=== PATIENT | female | born 1945 | race Caucasian/White ===

== ENCOUNTER 2019-01-15 18:37 | Inpatient (IN) | payer MEDICARE, OTHER, SELFPAY ==
[2019-01-15 19:00] VITALS: BP 132/60; PULSE 68; RESP 18; TEMP 36.3; O2SAT 97; BMI 22.9
[2019-01-15 19:56] VITALS: BMI 22.9
--- NOTE | 2019-01-15 20:16 | PCM.CONS.GEN ---
Reason for Consult Date of Consultation: 01/15/19 Reason for Consultation: Consult requested by Dr. Marroquin for medical mgmt. History of Present Illness: The patient is a 73 year old F who on November 29, had a meningioma resection. Patient was in hospital and eventually discharged. While at home, patient regressed and started having falls. Patient was then diagnosed with normal pressure hydrocephalus and went to [facility] and had a shunt placed. Apparently there was some issue with the shunt and had to be revised or replaced. Patient was discharged from [facility] to [facility] today. All the documentation with exception of some limited discharge medication list and patient information list was not available at the time of my evaluation. Currently, the patient states that she feels well other than headache that she developed from the bumpy ride over from [facility]. [] Past Medical History Medical History: Medical History (Last Updated 01/15/19 @ 20:19 by Librado De Santiago DO) Hyperlipidemia E78.5 Normal pressure hydrocephalus G91.2 HTN (hypertension) I10 Allergies No Known Allergies Allergy (Verified 02/07/13 18:26) Home Medications: Ambulatory Orders Medication Instructions Recorded Fish Oil/Dha/Epa [Fish Oil 1,200 1 tab PO DAILY 02/07/13 mg Fish Oil] Hydrochlorothiazide [Hctz] 25 mg PO DAILY 02/07/13 Rosuvastatin Calcium [Crestor] 10 mg PO QHS 02/07/13 Calcium Carbonate [Calcium] 500 mg PO BID 01/15/19 Cranberry Extract [Cranberry] 200 mg PO DAILY 01/15/19 Dexamethasone [Decadron] 2 mg PO BID 01/15/19 Dexamethasone [Decadron] 2 mg PO TID 01/15/19 Dexamethasone [Decadron] 4 mg PO BIDCM 01/15/19 Dexamethasone [Decadron] 4 mg PO Q8H 01/15/19 Famotidine [Pepcid] 20 mg PO BID 01/15/19 Heparin Injection (Vial) [Heparin 5,000 unit SUBCUT Q12H 01/15/19 Na] Losartan Potassium [Cozaar] 100 mg PO DAILY 01/15/19 Metformin HCl [Metformin HCl ER] 500 mg PO DAILY 01/15/19 Multivitamin [Daily Multiple 1 ea PO DAILY 01/15/19 Vitamin] Ondansetron HCl [Zofran] 4 mg PO Q8H PRN PRN 01/15/19 Oxycodon-Acetaminophen 2.5-325 1 - 2 tab PO Q8H PRN PRN 01/15/19 Topiramate [Topamax] 25 mg PO BID 01/15/19 Surgical History: Surgical History (Last Updated 01/15/19 @ 20:19 by Librado De Santiago DO) S/P [employer] shunt Z98.2 S/P hip replacement Z96.649 S/P resection of meningioma Z98.890, Z86.018 Smoking Status: Former smoker Tobacco Use: Non-smoker Alcohol: Rare - *Family History Maternal History Items: - - no meningioma Review of Systems Constitutional: Denies: Anorexia, Chills, Fever Eyes: Denies: Blurred vision, Double vision HEENT: Denies: Head Aches, Sinus Congestion, Sinus Drainage Cardiovascular: Denies: Chest Pain, Palpitations Respiratory: Denies: Cough, Shortness of breath at rest, Sputum production Gastrointestinal: Reports: Nausea, Vomiting. Denies: Abdominal Pain Genitourinary: Denies: Dysuria Musculoskeletal: Denies: Joint Pain, Joint Tenderness Skin: Denies: Rash, Wounds Neurological: Reports: Balance problems Psychiatric: Denies: Anxiety, Depression Hematologic/ Lymphatic: Denies: Easy Bruising, Easy Bleeding, Hx of blood clot Comment: All review systems are otherwise negative except for as mentioned above and in HPI. - Physical Exam Vitals/I&O's: Vital Signs Temp Pulse Resp BP Pulse Ox 36.3 C L 68 18 132/60 H 97 01/15/19 19:00 01/15/19 19:00 01/15/19 19:00 01/15/19 19:00 01/15/19 19:00 Oxygen Delivery Method Room Air Weight: 62.5 kg Body Mass Index (BMI) 22.9 Intake and Output for Last 24 Hours 01/13/19 01/14/19 01/15/19 23:59 23:59 23:59 Intake Total 220 / 220 Balance 220 / 220 General: Alert, Cooperative, No apparent distress HEENT: Atraumatic, Normocephalic, - - Incision on right scalp is stapled and clean and intact without erythema or purulence. Oral: Moist Mucosa, No Gingival or Mucosal Lesions/ Ulcerations Neck: No Nodes, Trachea Midline Lungs: Clear to auscultation, Normal air movement, No rhonchi, No wheeze, No rales Cardiovascular: Regular rate, Regular Rhythm, Normal S1, Normal S2, No murmurs Abdomen: Bowel Sounds Present, Soft, Non Tender, Non-Distended, No Hepato-splenomegaly Extremities: No edema, No Calf Tenderness Skin: No rashes, No breakdown Musculoskeletal: No Tenderness to Palpation of Joints or Extremities, No Muscle Wasting Psych/Mental Status: Normal Affect, Appropriate Current Medications Acetaminophen (Tylenol) 500 mg PO Q6H PRN PRN PRN Reason: HEADACHE Atorvastatin Calcium (Lipitor) 20 mg PO QHS [facility] Bisacodyl (Dulcolax) 10 mg RECTAL .PRN X 1 PRN PRN Reason: Constipation Calcium Carbonate (Os-Gonzalez 500) 500 mg PO BID [facility] Dexamethasone (Decadron) 2 mg PO BIDCM [facility] Dexamethasone (Decadron) 2 mg PO TIDCM [facility] Stop: 02/01/19 08:01 Dexamethasone (Decadron) 4 mg PO Q8H [facility] Stop: 01/21/19 06:01 Dexamethasone (Decadron) 4 mg PO BIDCM [facility] Stop: 01/26/19 17:01 Famotidine (Pepcid) 20 mg PO BID [facility] Heparin Sodium (Porcine) (Heparin Na) 5,000 unit SC Q12 [facility] Hydrochlorothiazide (Hctz) 25 mg PO DAILY [facility] Losartan Potassium (Cozaar) 100 mg PO DAILY [facility] Magnesium Hydroxide (Milk Of Magnesia) 30 ml PO .PRN X 1 PRN PRN Reason: Constipation Metformin HCl (Glucophage Xr) 500 mg PO DAILY@1700 [facility] Multivitamins (Multivitamin) 1 tablet PO DAILY@0800 [facility] Ondansetron HCl (Zofran Odt) 4 mg PO Q8H PRN PRN PRN Reason: nasuea Oxycodone HCl (Oxyir) 0.5 - 1 mg PO Q8H PRN PRN PRN Reason: pain Senna/Docusate Sodium (Senokot-S, Sarai-Colace) 2 tablet PO BID [facility] Topiramate (Topamax) 25 mg PO BID [facility] Assessment/Plan 1. Normal pressure hydrocephalus Status post [employer] shunt On Decadron taper Follow-up with neurosurgery as outpatient 2. Hypertension Stable Continue with losartan and HCTZ 3. Hyperlipidemia Continue with statin Thank you for the consult. The hospitalist service will follow along during the course of this patient's rehab stay. Code Visit Inpatient E&M: 84300 Init Hosp L2
[2019-01-15] MEDS: Acetaminophen 500 MG Tablet PO (20:24)
[2019-01-15 20:38] VITALS: BP 130/66; PULSE 72; RESP 18; TEMP 36.6; O2SAT 96
[2019-01-15] MEDS: Ondansetron ODT 4 MG Tablet PO (21:18)
[2019-01-15] MEDS: Topiramate 25 MG Tablet PO (21:21)
[2019-01-15] MEDS: Senna/Docusate Sodium 1 Tablet 2 TABLET PO (21:21)
[2019-01-15] MEDS: Atorvastatin Calcium 20 MG Tablet PO (21:22)
[2019-01-15] MEDS: Calcium (Elemental) 500 MG Tablet PO (21:22)
[2019-01-15] MEDS: Famotidine 20 MG Tablet PO (21:22)
[2019-01-15] MEDS: Heparin Injection (Vial) 5,000 UNIT/ML VIAL 5000 UNIT SC (21:23)
[2019-01-15 22:00] VITALS: O2SAT 96
[2019-01-15 22:30] LABS: Bedside Glucose 181 mg/dL (70-110)
[2019-01-16 05:50] LABS: Absolute Lymphocyte Count 1.21 X10^3/uL (0.83-4.51); Absolute Neutrophil Count 7.1 X10^3/uL (2.0-7.7); Basophil# 0.01 X10^3/uL; Basophil% 0.1 % (0-1); Eosinophil# 0.01 X10^3/uL; Eosinophils% 0.1 % (0-5); Hematocrit 37.4 % (37-47); Hemoglobin 12.6 g/dL (12.0-15.0); Lymphocyte # 1.21 X10^3/ul (4.0); Lymphocyte % 13.3 % (19-41); Mean Corp Hgb Conc 33.7 g/dL (32-36); Mean Corpuscular Volume 86.2 fL (81-99); Mean Platelet Vol. 8.7 fl (6.2-12.0); Monocyte% 7.7 % (0-10); NRBC Flagged by Analyzer 0 % (0-5); Neutrophil # 7.09 X10^3/uL (2.7-7.7); Platelet Count 258 K/mm3 (150-450); RBC Distribution Width CV 13.5 % (11.6-14.6); RBC Distribution Width SD 42.8 fl (35.1-43.9); Red Blood Count 4.34 M/mm3 (4.2-5.4); White Blood Count 9.1 K/mm3 (4.4-11.0)
[2019-01-16 06:07] LABS: Anion Gap 6 (5-15); BUN 18 mg/dL (7-18); BUN/Creat Ratio 35.5 RATIO (10-20); Calcium,Total 9.7 mg/dL (8.5-10.1); Chloride 104 mmol/L (98-107); Creatinine, Serum 0.51 mg/dL (0.55-1.02); EST Glomerular Filtration Rate 126 mL/min (>60); Est Glom Filt Rate - Afr Amer 153 mL/min (>60); Estimated Creatinine Clearance 45.09 ml/min; Glucose 133 mg/dL (74-106); Potassium 4.3 mmol/L (3.5-5.1); Sodium Level 136 mmol/L (136-145)
[2019-01-16] MEDS: dexAMETHasone 4 MG Tablet PO ×3 (06:08→20:31)
[2019-01-16 06:56] LABS: Bedside Glucose 130 mg/dL (70-110)
[2019-01-16] MEDS: Senna/Docusate Sodium 1 Tablet 2 TABLET PO ×2 (07:56→20:32)
[2019-01-16] MEDS: Topiramate 25 MG Tablet PO ×2 (07:56→20:32)
[2019-01-16] MEDS: Heparin Injection (Vial) 5,000 UNIT/ML VIAL 5000 UNIT SC ×2 (07:57→20:31)
[2019-01-16] MEDS: Losartan Potassium 100 MG Tablet PO (07:57)
[2019-01-16] MEDS: Famotidine 20 MG Tablet PO ×2 (07:57→20:32)
[2019-01-16] MEDS: hydroCHLOROthiazide 25 MG Tablet PO (07:57)
[2019-01-16] MEDS: Multivitamins,Therapeutic Tablet 1 TABLET PO (07:57)
[2019-01-16] MEDS: Calcium (Elemental) 500 MG Tablet PO ×2 (07:57→20:31)
[2019-01-16 08:04] VITALS: BP 134/71; PULSE 54; RESP 16; TEMP 36.5; O2SAT 97
--- NOTE | 2019-01-16 10:11 | HP.PCM_ITS ---
Problem List (1) Debility Status: Acute (2) HTN (hypertension) Status: Chronic (3) HLD (hyperlipidemia) Status: Chronic (4) Diabetes Status: Chronic (5) Hydrocephalus Status: Acute (6) Cerebellar mass Status: Chronic (7) S/P INSTRUCTIONAL SPECIALIST shunt Status: Acute History of Present Illness Date of Admission: 01/15/19 Chief Complaint: Debility s/p hydrocephalus (NPH) and VPS The patient is a 73 year old F with PMH HTN, HLD, DM, history of cerebellar mass status post resection admitted to [facility] on 01/15/2019 for debility secondary to normal pressure hydrocephalus status post INSTRUCTIONAL SPECIALIST shunt placement, for greater ross n 3 hours of therapy daily with a goal of returning home at or near her prior level of independence. History is obtained from the patient as well as from medical records. Per documentation patient had a cerebellar mass that was resected on 11/29/2018, later patient was discharged in stable condition and readmitted on 01/01/[address] [facility] for imbalance and intermittent nausea vomiting, diagnostic test at that time revealed hydrocephalus, a lumbar drain was placed initially at that time per documentation and patient was observed for subsequent improvement in the symptoms, she was then discharged on January 06, 2019, later patient was readmitted to [facility] on 01/07/2019 with nausea vomiting and intermittent headache along with balance issues and gait instability, per documentation patient had been confused since the prior discharge from [facility] and was not remembering to intermittent events, on 01/10/2019 patient underwent INSTRUCTIONAL SPECIALIST shunt placement for NPH by Dr. Megan Delaney at [facility], and per documentation patient had post craniectomy aseptic meningitis. Per patient post her cerebellar mass resection in November 2018 later she developed falls and balance issues, gait instability but denies any memory loss or urinary incontinence. At present patient denies any headache, dizziness, visual disturbances, speech disturbances, focal motor weakness, sensory loss or pain. Per patient she lives alone, prior to her surgery in November 2018 she was driving, denied any falls prior to that, was not using cane or walker to ambulate prior to surgery in November 2018. Per patient she lives in independent house and has 2 steps to get into the house. [] Past Medical History Past Medical History (Chronic Problems): Chronic Problems (Last Updated 01/15/19 @ 20:19 by Librado De Santiago DO) HTN (hypertension) (Chronic) HLD (hyperlipidemia) (Chronic) Diabetes (Chronic) Cerebellar mass (Chronic) Medical History: Medical History (Last Updated 01/15/19 @ 20:19 by Librado De Santiago DO) Hyperlipidemia E78.5 Normal pressure hydrocephalus G91.2 HTN (hypertension) I10 Allergies No Known Allergies Allergy (Verified 02/07/13 18:26) Home Medications: Ambulatory Orders Medication Instructions Recorded Fish Oil/Dha/Epa [Fish Oil 1,200 1 tab PO DAILY 02/07/13 mg Fish Oil] Hydrochlorothiazide [Hctz] 25 mg PO DAILY 02/07/13 Rosuvastatin Calcium [Crestor] 10 mg PO QHS 02/07/13 Calcium Carbonate [Calcium] 500 mg PO BID 01/15/19 Cranberry Extract [Cranberry] 200 mg PO DAILY 01/15/19 Dexamethasone [Decadron] 2 mg PO BID 01/15/19 Dexamethasone [Decadron] 2 mg PO TID 01/15/19 Dexamethasone [Decadron] 4 mg PO BIDCM 01/15/19 Dexamethasone [Decadron] 4 mg PO Q8H 01/15/19 Famotidine [Pepcid] 20 mg PO BID 01/15/19 Heparin Injection (Vial) [Heparin 5,000 unit SUBCUT Q12H 01/15/19 Na] Losartan Potassium [Cozaar] 100 mg PO DAILY 01/15/19 Metformin HCl [Metformin HCl ER] 500 mg PO DAILY 01/15/19 Multivitamin [Daily Multiple 1 ea PO DAILY 01/15/19 Vitamin] Ondansetron HCl [Zofran] 4 mg PO Q8H PRN PRN 01/15/19 Oxycodon-Acetaminophen 2.5-325 1 - 2 tab PO Q8H PRN PRN 01/15/19 Topiramate [Topamax] 25 mg PO BID 01/15/19 Surgical History: Surgical History (Last Updated 01/15/19 @ 20:19 by Librado De Santiago DO) S/P INSTRUCTIONAL SPECIALIST shunt Z98.2 S/P hip replacement Z96.649 S/P resection of meningioma Z98.890, Z86.018 Lives: Alone Smoking Status: Former smoker Tobacco Use: Non-smoker Alcohol: Rare - *Family History Maternal History Items: - - no meningioma Review of Systems Constitutional: Reports: - - Complete ROS negative except as documented in HPI VTE Information - Inpt Only VTE Present on Admission: No VTE Mechan Device Prophylaxis: SCD's, Knee High AIMEE Hose VTE Pharm Prophylaxis ordered?: Yes Patient Problems: Active and Suspected Problems (Last Updated 01/15/19 @ 20:19 by Librado De Santiago DO) Debility (Acute) Hydrocephalus (Acute) S/P INSTRUCTIONAL SPECIALIST shunt (Acute) - Physical Exam Vitals/I&O's: Vital Signs Temp Pulse Resp BP Pulse Ox 97.7 F L 54 L 16 134/71 H 97 01/16/19 08:04 01/16/19 08:04 01/16/19 08:04 01/16/19 08:04 01/16/19 08:04 Oxygen Delivery Method Room Air Weight: 62.5 kg Body Mass Index (BMI) 22.9 Intake and Output for Last 24 Hours 01/14/19 01/15/19 01/16/19 23:59 23:59 23:59 Intake Total 220 / 220 240 / 240 Balance 220 / 220 240 / 240 General: Alert HEENT: Normocephalic Neck: Supple Lungs: Normal air movement Cardiovascular: Normal S1, Normal S2 Abdomen: Bowel Sounds Present Extremities: No cyanosis Neurological: - - Conscious, alert, AOA x3, CN II to XII grossly intact, power 5/5 both upper and lower extremities, plantars B/L flexor, no pronator drift, no sensory loss, no cerebellar signs, gait deferred, reflexes + B/L B/S/T/K/A, No NR, fundus not visualized Psych/Mental Status: Normal Affect Laboratory Results 01/15/19 22:10: POC Glucose 181 H 01/16/19 05:41: WBC 9.1, RBC 4.34, Hgb 12.6, Hct 37.4, MCV 86.2, MCH 29.0, MCHC 33.7, RDW Std Deviation 42.8, RDW Coeff of Amira 13.5, Plt Count 258, MPV 8.7, Immature Gran % (Auto) 0.800, Neut % (Auto) 78.0 H, Lymph % (Auto) 13.3 L, [place] % (Auto) 7.7, Eos % (Auto) 0.1, Baso % (Auto) 0.1, Absolute Neuts (auto) 7.1, Absolute Lymphs (auto) 1.21, Nucleated RBC % 0 01/16/19 05:41: Sodium 136, Potassium 4.3, Chloride 104, Carbon Dioxide 26.0, Anion Gap 6, BUN 18, Creatinine 0.51 L, Estim Creat Clear Calc 45.09, Est GFR (MDRD) Af Amer 153, Est GFR (MDRD) Non-Af 126, BUN/Creatinine Ratio 35.5 H, Glucose 133 H, Calcium 9.7 01/16/19 06:49: POC Glucose 130 H Current Medications Acetaminophen (Tylenol) 500 mg PO Q6H PRN PRN PRN Reason: HEADACHE Last Admin: 01/15/19 20:24 Dose: 500 mg Documented by: Atorvastatin Calcium (Lipitor) 20 mg PO QHS [facility] Last Admin: 01/15/19 21:22 Dose: 20 mg Documented by: Bisacodyl (Dulcolax) 10 mg RECTAL .PRN X 1 PRN PRN Reason: Constipation Calcium Carbonate (Os-Gonzalez 500) 500 mg PO BID [facility] Last Admin: 01/16/19 07:57 Dose: 500 mg Documented by: [facility] Dexamethasone (Decadron) 2 mg PO TIDCM [facility] Stop: 02/01/19 08:01 Dexamethasone (Decadron) 4 mg PO Q8H [facility] Stop: 01/21/19 06:01 Last Admin: 01/16/19 06:08 Dose: 4 mg Documented by: Dexamethasone (Decadron) 4 mg PO BIDCM [facility] Stop: 01/26/19 17:01 Famotidine (Pepcid) 20 mg PO BID [facility] Last Admin: 01/16/19 07:57 Dose: 20 mg Documented by: Heparin Sodium (Porcine) (Heparin Na) 5,000 unit SC Q12 [facility] Last Admin: 01/16/19 07:57 Dose: 5,000 unit Documented by: Hydrochlorothiazide (Hctz) 25 mg PO DAILY [facility] Last Admin: 01/16/19 07:57 Dose: 25 mg Documented by: Losartan Potassium (Cozaar) 100 mg PO DAILY [facility] Last Admin: 01/16/19 07:57 Dose: 100 mg Documented by: Magnesium Hydroxide (Milk Of Magnesia) 30 ml PO .PRN X 1 PRN PRN Reason: Constipation Metformin HCl (Glucophage Xr) 500 mg PO DAILY@1700 [facility] Multivitamins (Multivitamin) 1 tablet PO DAILY@0800 [facility] Last Admin: 01/16/19 07:57 Dose: 1 tablet Documented by: Ondansetron HCl (Zofran Odt) 4 mg PO Q8H PRN PRN PRN Reason: nasuea Last Admin: 01/15/19 21:18 Dose: 4 mg Documented by: Oxycodone HCl (Oxyir) 0.5 - 1 mg PO Q8H PRN PRN PRN Reason: pain Senna/Docusate Sodium (Senokot-S, Sarai-Colace) 2 tablet PO BID [facility] Last Admin: 01/16/19 07:56 Dose: 2 tablet Documented by: Topiramate (Topamax) 25 mg PO BID [facility] Last Admin: 01/16/19 07:56 Dose: 25 mg Documented by: Assessment/Plan All Active Problems (Last Updated 01/15/19 @ 20:19 by Librado De Santiago DO) Debility (Acute) Hydrocephalus (Acute) S/P INSTRUCTIONAL SPECIALIST shunt (Acute) The patient is a 73 year old F with PMH HTN, HLD, DM, history of cerebellar mass status post resection admitted to [facility] on 01/15/2019 for debility secondary to normal pressure hydrocephalus status post INSTRUCTIONAL SPECIALIST shunt placement, for greater than 3 hours of therapy daily with a goal of returning home at or near her prior level of independence. History is obtained from the patient as well as from medical records. Per documentation patient had a cerebellar mass that was resected on 11/29/2018, later patient was discharged in stable condition and readmitted on 01/01/[address] [facility] for imbalance and intermitten t nausea vomiting, diagnostic test at that time revealed hydrocephalus, a lumbar drain was placed initially at that time per documentation and patient was observed for subsequent improvement in the symptoms, she was then discharged on January 06, 2019, later patient was readmitted to [facility] on 01/07/2019 with nausea vomiting and intermittent headache along with balance issues and gait instability, per documentation patient had been confused since the prior discharge from [facility] and was not remembering to intermittent events, on 01/10/2019 patient underwent INSTRUCTIONAL SPECIALIST shunt placement for NPH by Dr. Megan Delaney at [facility], and per documentation patient had post craniectomy aseptic meningitis. Per patient post her cerebellar mass resection in November 2018 later she developed falls and balance issues, gait instability but denies any memory loss or urinary incontinence. At present patient denies any headache, dizziness, visual disturbances, speech disturbances, focal motor weakness, sensory loss or pain. Per patient she lives alone, prior to her surgery in November 2018 she was driving, denied any falls prior to that, was not using cane or walker to ambulate prior to surgery in November 2018. Per patient she lives in independent house and has 2 steps to get into the house. 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 Megan Delaney?further recommendation and management per neurosurgery Dr. Megan Delaney. On dexamethasone tapering dose. On famotidine and calcium. Topamax 25 mg p.o. twice daily -HTN?on losartan and HCTZ. Goal blood pressure less than 130/80 mmHg. Avoid hypotension -HLD?on atorvastatin -DM on metformin ER -GI/DVT prophylaxis?on famotidine/heparin 5000 units subcu twice daily, SCDs, AIMEE christiansen -Fall precautions -Further medical management per hospitalist recommendation -Follow up with PCP and neurosurgery Dr. Megan Delaney on discharge as outpatient Code Visit Inpatient E&M: 71466 Init Hosp L3
--- NOTE | 2019-01-16 10:32 | PCM.RU.PYE ---
Admission Information Status Changes from Prescreening?: No changes Identified Actual Problem List:: Falls, Mobility Impaired, Self Care Deficit Potential Problem List:: DVT, Bleeding, Infection, UTI, Aspiration, Falls, Skin Integrity, Depression Risk of Complications DVT: LMWH, AIMEE Hose, Sequential Compression Device Bleeding: Monitor Lab Values, Nursing to Teach Precautions for anti-coagulation therapy., Wound, if applicable, to be assessed every shift., Stroke patients assessed for lethargy or change in status. Infection: Clinical Staff to Monitor for S/S of infection:, S/S of infection include fever, redness, warmth, etc. Urinary Tract Infection: Monitor for frequency, burning, discomfort, or incontinence., Nursing will obtain urine sample for urinalysis and C&S when ordered. Aspiration: Clinical staff will monitor for coughing, drooling, congestion., Speech will evaluate swallowing and dsyphasia., Nursing will monitor patient swallowing during meals. Falls: Patient will be evaluated for Fall Precautions, Patient will be placed on Fall Precautions as indicated per protocol. Skin Breakdown: Nursing will assess skin daily using assessment tool., Nursing will place on Skin Breakdown Precautions as indicated. Pain: Clinical staff will assess patient's pain level per protocol., Medications will be given, if needed, and the pain level reassessed., Other methods: Massage, distraction, decrease stimulus, etc. used PRN. Plan of Care Patient requires physician specializing in physical medicine and rehab oversight to provide close medical supervision of rehab issues including: Pain Management, Sleep Problems, Bowel and Bladder, Medical and co-morbidity Management, DVT prophylaxis, Rehabilitation Leadership, Coordination of treatment team Patient needs Physical Therapy: For a minimum of 1 hour, At least 5 out of 7 days Patient needs Physical Therapy to improve:: Mobility, Mobility, Mobility, Strengthening, Transfers, Stretching, ROM, Endurance, Stairs, Gait, Balance Patient needs Occupational Therapy: For a minimum of 1 hour, At least 5 out of 7 days Patient needs Occupational Therapy to improve ADL's incl.: Eating, Grooming, Bathing, Dressing, Toileting, Toilet transfers, Community Reintegration, Higher functioning activities, Household tasks, Adaptive Equipment, Splinting, Other activities as determined Patient requires speech therapy: For a minimum of 1 hour, At least 5 out of 7 days Patient requires speech therapy for: Swallowing, Cognition, Language Skills, Compensatory Strategies Patient requires / Rehabilitation Nursing for: Pain Issues, Identifying and preventing risk factors, Monitoring and reporting current medical conditions, Assisting with ambulation, transfer, and all ADL's, Teaching patients about disease process and medications, Family teaching, Providing safe environment, Bowel and Bladder Issues, Skin integrity, Medication Management Patient needs Live Ammunition Inspector/ Case Management for: Discharge Planning, Arranging Home Equipment or Services, Family Interventions Patient needs Dietary and Nutrition Services for: Adequate Nutrition, Nutritional Supplements, Nutritional Education Goals Patient will remain: free from falls, or injury at time of discharge. Patient will perform bed mobility at: MOD I level of assist. Patient will complete transfers from bed to chair at: MOD I level of assist. Patient will ambulate: 100 feet, with MOD I assist, with LRD Patient will complete upper body dressing at: MOD I level of assist. Patient will complete lower body dressing at: MOD I level of assist. Patient will complete toileting at: MOD I level of assist. Patient will perform bathing at: MOD I level of assist. Patient will complete grooming at: MOD I level of assist. Patient will complete home management skills at: MOD I level of assist. Patient will achieve: 12 stairs, at MOD I assist Patient will have pain level of: of 3 or less Patient's skin will: remain intact, free from infection. Patient will receive: adequate nutrition. Discharge Planning Pt Prognosis for Sig. Practical Improv. w/in Reasonable Time: Good Estimated Length of stay (days): 16 Anticipated D/C Destination: Home Was Preadmission Assessment Accurate?: Yes
[2019-01-16] MEDS: Ondansetron ODT 4 MG Tablet PO ×2 (10:51→20:29)
[2019-01-16 11:26] LABS: Bedside Glucose 175 mg/dL (70-110)
[2019-01-16 16:51] VITALS: O2SAT 100
[2019-01-16] MEDS: metFORMIN (XR) 500 MG Tablet PO (16:57)
[2019-01-16 17:01] LABS: Bedside Glucose 117 mg/dL (70-110)
[2019-01-16 19:05] VITALS: BP 146/70; PULSE 61; RESP 16; TEMP 36.8; O2SAT 100
[2019-01-16] MEDS: Atorvastatin Calcium 20 MG Tablet PO (20:31)
[2019-01-16 20:44] VITALS: O2SAT 95
[2019-01-16 21:40] LABS: Bedside Glucose 150 mg/dL (70-110)
[2019-01-17] MEDS: Ondansetron ODT 4 MG Tablet PO ×2 (05:38→14:52)
--- NOTE | 2019-01-17 05:49 | NURSING ---
Pt educational material found in garbage.
--- NOTE | 2019-01-17 06:10 | NURSING ---
Addendum entered by Yudy Berrios 01/17/19 06:15: rn made aware of emesis and pt returning to bed, will continue to monitor Original Note: 0545 pt sitting on the toilet and reports that she is nauseated. pt indicated that she needs to return to bed d/t feeling sick. staff assist pt back into the bed and a cool washcloth was given for face and neck. pt proceeded with dry heaves and then had an emesis of 50cc; yellow in color
[2019-01-17 06:26] LABS: Bedside Glucose 146 mg/dL (70-110)
[2019-01-17] MEDS: dexAMETHasone 4 MG Tablet PO ×3 (06:45→21:50)
[2019-01-17 07:10] VITALS: BP 124/72; PULSE 68; RESP 97; TEMP 36.7; O2SAT 16
--- NOTE | 2019-01-17 07:42 | PN_ITS ---
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 Oral: Moist Mucosa, No Gingival or Mucosal Lesions/ Ulcerations Neck: No Nodes, Trachea Midline Lungs: Clear to auscultation, Normal air movement, No rhonchi, No wheeze, No rales Cardiovascular: Regular rate, Regular Rhythm, Normal S1, Normal S2, No murmurs Abdomen: Bowel Sounds Present, Soft, Non Tender, Non-Distended, No Hepato- splenomegaly Extremities: No edema, No Calf Tenderness Skin: No rashes, No breakdown Musculoskeletal: No Tenderness to Palpation of Joints or Extremities, No Muscle Wasting Psych/Mental Status: Normal Affect, Appropriate Vitals/I&O's: Vital Signs Temp Pulse Resp BP Pulse Ox 98.0 F 68 97 H 124/72 H 16 01/17/19 07:10 01/17/19 07:10 01/17/19 07:10 01/17/19 07:10 01/17/19 07:10 Oxygen Delivery Method Room Air Weight: 62.5 kg Body Mass Index (BMI) 22.9 Intake and Output for Last 24 Hours 01/15/19 01/16/19 01/17/19 23:59 23:59 23:59 Intake Total 220 / 220 240 / 240 Balance 220 / 220 240 / 240 Laboratory Results 01/16/19 11:23: POC Glucose 175 H 01/16/19 16:57: POC Glucose 117 H 01/16/19 21:36: POC Glucose 150 H 01/17/19 06:20: POC Glucose 146 H Current Medications Acetaminophen (Tylenol) 500 mg PO Q6H PRN PRN PRN Reason: HEADACHE Last Admin: 01/15/19 20:24 Dose: 500 mg Documented by: Atorvastatin Calcium (Lipitor) 20 mg PO QHS [facility] Last Admin: 01/16/19 20:31 Dose: 20 mg Documented by: Bisacodyl (Dulcolax) 10 mg RECTAL .PRN X 1 PRN PRN Reason: Constipation Calcium Carbonate (Os-Gonzalez 500) 500 mg PO BID [facility] Last Admin: 01/16/19 20:31 Dose: 500 mg Documented by: [facility] (Decadron) 2 mg PO TIDCM [facility] Stop: 02/01/19 08:01 Dexamethasone (Decadron) 4 mg PO Q8H [facility] Stop: 01/21/19 06:01 Last Admin: 01/17/19 06:45 Dose: 4 mg Documented by: [facility] Stop: 01/26/19 17:01 Famotidine (Pepcid) 20 mg PO BID [facility] Last Admin: 01/16/19 20:32 Dose: 20 mg Documented by: Heparin Sodium (Porcine) (Heparin Na) 5,000 unit SC Q12 [facility] Last Admin: 01/16/19 20:31 Dose: 5,000 unit Documented by: Hydrochlorothiazide (Hctz) 25 mg PO DAILY [facility] Last Admin: 01/16/19 07:57 Dose: 25 mg Documented by: Losartan Potassium (Cozaar) 100 mg PO DAILY [facility] Last Admin: 01/16/19 07:57 Dose: 100 mg Documented by: Magnesium Hydroxide (Milk Of Magnesia) 30 ml PO .PRN X 1 PRN PRN Reason: Constipation Metformin HCl (Glucophage Xr) 500 mg PO DAILY@1700 [facility] Last Admin: 01/16/19 16:57 Dose: 500 mg Documented by: Multivitamins (Multivitamin) 1 tablet PO DAILY@0800 [facility] Last Admin: 01/16/19 07:57 Dose: 1 tablet Documented by: Ondansetron HCl (Zofran Odt) 4 mg PO Q8H PRN PRN PRN Reason: nasuea Last Admin: 01/17/19 05:38 Dose: 4 mg Documented by: Oxycodone HCl (Oxyir) 0.5 - 1 mg PO Q8H PRN PRN PRN Reason: pain Senna/Docusate Sodium (Senokot-S, Sarai-Colace) 2 tablet PO BID [facility] Last Admin: 01/17/19 07:36 Dose: Not Given Documented by: Topiramate (Topamax) 25 mg PO BID [facility] Last Admin: 01/16/19 20:32 Dose: 25 mg Documented by: STROKE Vital Signs/Narrative: Vital Signs Temp Pulse Resp BP Pulse Ox 01/17/19 07:10 98.0 F 68 97 H 124/72 H 16 Medical Necessity - Tobacco Use Smoking Status: Former smoker Tobacco Use: Non-smoker Assessment/Plan All Active Problems (Last Updated 01/15/19 @ 20:19 by Librado De Santiago DO) Debility (Acute) Hydrocephalus (Acute) 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 Normal pressure hydrocephalus, s/p [employer]ATERM[employer] HARVESTING SUPERVISOR shunt On Decadron taper Follow-up with neurosurgery planned 2. Hypertension, controlled, continue on Losartan and HCTZ 3. Hyperlipidemia, on statin 4. DVT PPx- Heparin Sc Code Visit Inpatient E&M: 35938 Subs Hosp L2
[2019-01-17] MEDS: Multivitamins,Therapeutic Tablet 1 TABLET PO (07:58)
[2019-01-17] MEDS: Heparin Injection (Vial) 5,000 UNIT/ML VIAL 5000 UNIT SC ×2 (07:58→21:49)
[2019-01-17] MEDS: Famotidine 20 MG Tablet PO ×2 (07:58→21:49)
[2019-01-17] MEDS: Calcium (Elemental) 500 MG Tablet PO ×2 (07:58→21:49)
[2019-01-17] MEDS: hydroCHLOROthiazide 25 MG Tablet PO (07:58)
[2019-01-17] MEDS: Losartan Potassium 100 MG Tablet PO (07:58)
[2019-01-17] MEDS: Topiramate 25 MG Tablet PO ×2 (07:59→21:49)
[2019-01-17 09:28] VITALS: O2SAT 97
--- NOTE | 2019-01-17 10:01 | PN.NEURO_ITS ---
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 Care discussed with the nursing staff. - Physical Exam Vitals/I&O's: Vital Signs Temp Pulse Resp BP Pulse Ox 98.0 F 68 97 H 124/72 H 97 01/17/19 07:10 01/17/19 07:10 01/17/19 07:10 01/17/19 07:10 01/17/19 09:28 Oxygen Delivery Method Room Air Weight: 62.5 kg Body Mass Index (BMI) 22.9 Intake and Output for Last 24 Hours 01/15/19 01/16/19 01/17/19 23:59 23:59 23:59 Intake Total 220 / 220 240 / 240 120 / 120 Balance 220 / 220 240 / 240 120 / 120 General: Alert HEENT: Atraumatic, Normocephalic Neck: Supple Lungs: Normal air movement Cardiovascular: Normal S1, Normal S2 Abdomen: Bowel Sounds Present Extremities: No cyanosis Neurological: - - Conscious, alert, AOA x3, CN II to XII grossly intact, power 5/5 both upper and lower extremities, plantars B/L flexor, no pronator drift, no sensory loss, no cerebellar signs, gait deferred, reflexes + B/L B/S/T/K/A, No NR, fundus not visualized Psych/Mental Status: Normal Affect Laboratory Results 01/16/19 11:23: POC Glucose 175 H 01/16/19 16:57: POC Glucose 117 H 01/16/19 21:36: POC Glucose 150 H 01/17/19 06:20: POC Glucose 146 H Current Medications Acetaminophen (Tylenol) 500 mg PO Q6H PRN PRN PRN Reason: HEADACHE Last Admin: 01/15/19 20:24 Dose: 500 mg Documented by: Atorvastatin Calcium (Lipitor) 20 mg PO QHS [facility] Last Admin: 01/16/19 20:31 Dose: 20 mg Documented by: Bisacodyl (Dulcolax) 10 mg RECTAL .PRN X 1 PRN PRN Reason: Constipation Calcium Carbonate (Os-Gonzalez 500) 500 mg PO BID [facility] Last Admin: 01/17/19 07:58 Dose: 500 mg Documented by: [facility]amethasone (Decadron) 2 mg PO TIDCM [facility] Stop: 02/01/19 08:01 Dexamethasone (Decadron) 4 mg PO Q8H [facility] Stop: 01/21/19 06:01 Last Admin: 01/17/19 06:45 Dose: 4 mg Documented by: Dexamethasone (Decadron) 4 mg PO BIDCM [facility] Stop: 01/26/19 17:01 Famotidine (Pepcid) 20 mg PO BID [facility] Last Admin: 01/17/19 07:58 Dose: 20 mg Documented by: Heparin Sodium (Porcine) (Heparin Na) 5,000 unit SC Q12 [facility] Last Admin: 01/17/19 07:58 Dose: 5,000 unit Documented by: Hydrochlorothiazide (Hctz) 25 mg PO DAILY [facility] Last Admin: 01/17/19 07:58 Dose: 25 mg Documented by: Losartan Potassium (Cozaar) 100 mg PO DAILY [facility] Last Admin: 01/17/19 07:58 Dose: 100 mg Documented by: Magnesium Hydroxide (Milk Of Magnesia) 30 ml PO .PRN X 1 PRN PRN Reason: Constipation Metformin HCl (Glucophage Xr) 500 mg PO DAILY@1700 [facility] Last Admin: 01/16/19 16:57 Dose: 500 mg Documented by: Multivitamins (Multivitamin) 1 tablet PO DAILY@0800 [facility] Last Admin: 01/17/19 07:58 Dose: 1 tablet Documented by: Ondansetron HCl (Zofran Odt) 4 mg PO Q8H PRN PRN PRN Reason: nasuea Last Admin: 01/17/19 05:38 Dose: 4 mg Documented by: Oxycodone HCl (Oxyir) 0.5 - 1 mg PO Q8H PRN PRN PRN Reason: pain Senna/Docusate Sodium (Senokot-S, Sarai-Colace) 2 tablet PO BID [facility] Last Admin: 01/17/19 07:36 Dose: Not Given Documented by: Topiramate (Topamax) 25 mg PO BID [facility] Last Admin: 01/17/19 07:59 Dose: 25 mg Documented by: STROKE Vital Signs/Narrative: Vital Signs Temp Pulse Resp BP Pulse Ox 01/17/19 09:28 97 01/17/19 07:10 98.0 F 68 97 H 124/72 H 16 Medical Necessity - Tobacco Use Smoking Status: Former smoker Tobacco Use: Non-smoker Assessment/Plan All Active Problems (Last Updated 01/15/19 @ 20:19 by Librado De Santiago DO) Debility (Acute) Hydrocephalus (Acute) 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 History is obtained from the patient as well as from medical records. Per documentation patient had a cerebellar mass that was resected on 11/29/2018, later patient was discharged in stable condition and readmitted on 01/01/2019 to [facility] for imbalance and intermittent nausea vomiting, diagnostic test at that time revealed hydrocephalus, a lumbar drain was placed initially at that time per documentation and [facility] she was then discharged on January 06, 2019, later patient was readmitted to [facility] on 01/07/2019 with nausea vomiting and intermittent headache along with balance issues and gait instability, per documentation patient had been confused since the prior discharge from [facility] and was not remembering to intermittent events, on 01/10/2019 patient underwent MEDICAL SALES ASSOCIATE shunt placement for NPH by Dr. Megan Delaney at [facility], and per documentation patient had post craniectomy aseptic meningitis. Per patient post her cerebellar mass resection in November 2018 later she developed falls and balance issues, gait instability but denies any memory loss or urinary incontinence. At present patient denies any headache, dizziness, visual disturbances, speech disturbances, focal motor weakness, sensory loss or pain. Per patient she lives alone, prior to her surgery in November 2018 she was [address], denied any falls prior to that, was not using cane or walker to ambulate prior to surgery in November 2018. Per patient she lives in independent house and has 2 steps to get into the house. 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 Megan Delaney?further recommendation and management per neurosurgery Dr. Megan Delaney. On dexamethasone tapering dose. On famotidine and calcium. Topamax 25 mg p.o. twice daily -HTN?on losartan and HCTZ. BP under control. Avoid hypotension -HLD?on atorvastatin -DM on metformin ER -GI/DVT prophylaxis?on famotidine/heparin 5000 units subcu twice daily, SCDs, AIMEE hose -Fall precautions -Further medical management per hospitalist recommendation -Follow up with PCP and neurosurgery Dr. Megan Delaney on discharge as outpatient
--- NOTE | 2019-01-17 11:02 | NURSING ---
Dr Megan Gaston office called regarding f/u appt for 01/22 and message left.. pt wondering what appt was for and if possible could be rescheduled.
[2019-01-17 11:55] LABS: Bedside Glucose 144 mg/dL (70-110)
[2019-01-17] MEDS: metFORMIN (XR) 500 MG Tablet PO (16:49)
[2019-01-17 17:01] LABS: Bedside Glucose 124 mg/dL (70-110)
[2019-01-17 19:55] VITALS: BP 111/61; PULSE 63; RESP 12; TEMP 36.6; O2SAT 98
[2019-01-17] MEDS: Atorvastatin Calcium 20 MG Tablet PO (21:49)
[2019-01-17 22:20] LABS: Bedside Glucose 151 mg/dL (70-110)
[2019-01-18] MEDS: Ondansetron ODT 4 MG Tablet PO ×2 (06:01→21:08)
[2019-01-18] MEDS: dexAMETHasone 4 MG Tablet PO ×3 (06:01→21:03)
[2019-01-18 06:40] VITALS: O2SAT 97
[2019-01-18 06:45] LABS: Bedside Glucose 105 mg/dL (70-110)
[2019-01-18 08:02] VITALS: BP 113/59; PULSE 60; RESP 12; TEMP 36.7; O2SAT 94
[2019-01-18] MEDS: Famotidine 20 MG Tablet PO ×2 (08:45→21:02)
[2019-01-18] MEDS: Topiramate 25 MG Tablet PO ×2 (08:45→21:02)
[2019-01-18] MEDS: hydroCHLOROthiazide 25 MG Tablet PO (08:45)
[2019-01-18] MEDS: Heparin Injection (Vial) 5,000 UNIT/ML VIAL 5000 UNIT SC ×2 (08:46→21:02)
[2019-01-18] MEDS: Losartan Potassium 100 MG Tablet PO (08:46)
[2019-01-18] MEDS: Calcium (Elemental) 500 MG Tablet PO ×2 (08:46→21:02)
[2019-01-18] MEDS: Multivitamins,Therapeutic Tablet 1 TABLET PO (08:46)
--- NOTE | 2019-01-18 11:34 | PCM.PN.NEU ---
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 Care discussed with the nursing staff. Denies any headache - Physical Exam Vitals/I&O's: Vital Signs Temp Pulse Resp BP Pulse Ox 98.1 F 60 12 113/59 L 94 01/18/19 08:02 01/18/19 08:02 01/18/19 08:02 01/18/19 08:02 01/18/19 08:02 Oxygen Delivery Method Room Air Weight: 58.8 kg Body Mass Index (BMI) 22.9 Intake and Output for Last 24 Hours 01/16/19 01/17/19 01/18/19 23:59 23:59 23:59 Intake Total 240 / 240 360 / 360 220 / 220 Balance 240 / 240 360 / 360 220 / 220 General: Alert HEENT: Normocephalic Neck: Supple Lungs: Normal air movement Cardiovascular: Normal S1, Normal S2 Abdomen: Bowel Sounds Present Extremities: No cyanosis Neurological: - - Conscious, alert, AOA x3, CN II to XII grossly intact, power 5/5 both upper and lower extremities, plantars B/L flexor, no pronator drift, no sensory loss, no cerebellar signs, gait deferred, reflexes + B/L B/S/T/K/A, No NR, fundus not visualized Psych/Mental Status: Normal Affect Laboratory Results 01/17/19 11:24: POC Glucose 144 H 01/17/19 16:51: POC Glucose 124 H 01/17/19 21:48: POC Glucose 151 H 01/18/19 06:20: POC Glucose 105 Current Medications Acetaminophen (Tylenol) 500 mg PO Q6H PRN PRN PRN Reason: HEADACHE Last Admin: 01/15/19 20:24 Dose: 500 mg Documented by: Atorvastatin Calcium (Lipitor) 20 mg PO QHS [facility] Last Admin: 01/17/19 21:49 Dose: 20 mg Documented by: Bisacodyl (Dulcolax) 10 mg RECTAL .PRN X 1 PRN PRN Reason: Constipation Calcium Carbonate (Os-Gonzalez 500) 500 mg PO BID [facility] Last Admin: 01/18/19 08:46 Dose: 500 mg Documented by: [facility]amethasone (Decadron) 2 mg PO TIDCM [facility] Stop: 02/01/19 08:01 Dexamethasone (Decadron) 4 mg PO Q8H [facility] Stop: 01/21/19 06:01 Last Admin: 01/18/19 06:01 Dose: 4 mg Documented by: Dexamethasone (Decadron) 4 mg PO BIDCM [facility] Stop: 01/26/19 17:01 Famotidine (Pepcid) 20 mg PO BID [facility] Last Admin: 01/18/19 08:45 Dose: 20 mg Documented by: Heparin Sodium (Porcine) (Heparin Na) 5,000 unit SC Q12 [facility] Last Admin: 01/18/19 08:46 Dose: 5,000 unit Documented by: Hydrochlorothiazide (Hctz) 25 mg PO DAILY [facility] Last Admin: 01/18/19 08:45 Dose: 25 mg Documented by: Losartan Potassium (Cozaar) 100 mg PO DAILY [facility] Last Admin: 01/18/19 08:46 Dose: 100 mg Documented by: Magnesium Hydroxide (Milk Of Magnesia) 30 ml PO .PRN X 1 PRN PRN Reason: Constipation Metformin HCl (Glucophage Xr) 500 mg PO DAILY@1700 [facility] Last Admin: 01/17/19 16:49 Dose: 500 mg Documented by: Multivitamins (Multivitamin) 1 tablet PO DAILY@0800 [facility] Last Admin: 01/18/19 08:46 Dose: 1 tablet Documented by: Ondansetron HCl (Zofran Odt) 4 mg PO Q8H PRN PRN PRN Reason: nasuea Last Admin: 01/18/19 06:01 Dose: 4 mg Documented by: Oxycodone HCl (Oxyir) 0.5 - 1 mg PO Q8H PRN PRN PRN Reason: pain Senna/Docusate Sodium (Senokot-S, Sarai-Colace) 2 tablet PO BID [facility] Last Admin: 01/18/19 08:47 Dose: Not Given Documented by: Topiramate (Topamax) 25 mg PO BID [facility] Last Admin: 01/18/19 08:45 Dose: 25 mg Documented by: STROKE Vital Signs/Narrative: Vital Signs Temp Pulse Resp BP Pulse Ox 01/18/19 08:02 98.1 F 60 12 113/59 L 94 Medical Necessity - Tobacco Use Smoking Status: Former smoker Tobacco Use: Non-smoker Assessment/Plan All Active Problems (Last Updated 01/15/19 @ 20:19 by Librado De Santiago DO) Debility (Acute) Hydrocephalus (Acute) S/P X RAY DEVELOPER shunt (Acute) The patient is a 73 year old F with PMH HTN, HLD, DM, history of cerebellar mass status post resection admitted to [facility] on 01/15/2019 for debility secondary to normal pressure hydrocephalus status post X RAY DEVELOPER shunt placement, for greater than 3 hours of therapy daily with a goal of returning home at or near her prior level of independence. History is obtained from the patient as well as from medical records. Per documentation patient had a cerebellar mass that was resected on 11/29/2018, later patient was discharged in stable condition and readmitted on 01/01/2019 to [facility] for imbalance and intermittent nausea vomiting, diagnostic test at that time revealed hydrocephalus, a lumbar drain was placed initially at that time per documentation and patient was observed for subsequent improvement in the symptoms, she was then discharged on January 06, 2019, later patient was readmitted to [facility] on 01/07/2019 with nausea vomiting and intermittent headache along with balance issues and gait instability, per documentation patient had been confused since the prior discharge from [facility] and was not remembering to intermittent events, on 01/10/2019 patient underwent X RAY DEVELOPER shunt placement for NPH by Dr. Megan Delaney at [facility], and per documentation patient had post craniectomy aseptic meningitis. Per patient post her cerebellar mass resection in November 2018 later she developed falls and balance issues, gait instability but denies any memory loss or urinary incontinence. At present patient denies any headache, dizziness, visual disturbances, speech disturbances, focal motor weakness, sensory loss or pain. Per patient she lives alone, prior to her surgery in November 2018 she was driving, denied any falls prior to that, was not using cane or walker to ambulate prior to surgery in November 2018. Per patient she lives in independent house and has 2 steps to get into the house. 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 Megan Delaney?further recommendation and management per neurosurgery Dr. Megan Delaney. On dexamethasone tapering dose. On famotidine and calcium. Topamax 25 mg p.o. twice daily -HTN?on losartan and HCTZ. BP under control. Avoid hypotension -HLD?on atorvastatin -DM on metformin ER -GI/DVT prophylaxis?on famotidine/heparin 5000 units subcu twice daily, SCDs, AIMEE hose -Fall precautions -Further medical management per hospitalist recommendation -Follow up with PCP and neurosurgery Dr. Megan Delaney on discharge as outpatient
[2019-01-18 12:06] LABS: Bedside Glucose 120 mg/dL (70-110)
[2019-01-18] MEDS: metFORMIN (XR) 500 MG Tablet PO (17:34)
[2019-01-18 17:46] LABS: Bedside Glucose 130 mg/dL (70-110)
[2019-01-18 20:55] VITALS: BP 108/57; PULSE 68; RESP 18; TEMP 36.8; O2SAT 98
[2019-01-18] MEDS: Atorvastatin Calcium 20 MG Tablet PO (21:02)
[2019-01-18 21:30] LABS: Bedside Glucose 130 mg/dL (70-110)
[2019-01-19] MEDS: dexAMETHasone 4 MG Tablet PO ×3 (05:52→21:05)
[2019-01-19 06:15] LABS: Bedside Glucose 115 mg/dL (70-110)
[2019-01-19] MEDS: Ondansetron ODT 4 MG Tablet PO ×2 (06:35→14:45)
--- NOTE | 2019-01-19 07:48 | PN_ITS ---
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 She complains of nausea that comes on and off. Denied abdominal pain. In general, her pain is controlled. Objective: Physical exam: General: Alert, Cooperative, No apparent distress HEENT: Atraumatic, Normocephalic, - - Incision on right scalp is stapled and clean and intact without erythema or purulence. Oral: Moist Mucosa, No Gingival or Mucosal Lesions/ Ulcerations Neck: No Nodes, Trachea Midline Lungs: Clear to auscultation, Normal air movement, No rhonchi, No wheeze, No rales Cardiovascular: Regular rate, Regular Rhythm, Normal S1, Normal S2, No murmurs Abdomen: Bowel Sounds Present, Soft, Non Tender, Non-Distended, No Hepato- splenomegaly Extremities: No edema, No Calf Tenderness Skin: No rashes, No breakdown Musculoskeletal: No Tenderness to Palpation of Joints or Extremities, No Muscle Wasting Psych/Mental Status: Normal Affect, Appropriate Vitals/I&O's: Vital Signs Temp Pulse Resp BP Pulse Ox 98.2 F 68 18 108/57 L 98 01/18/19 20:55 01/18/19 20:55 01/18/19 20:55 01/18/19 20:55 01/18/19 20:55 Oxygen Delivery Method Room Air Weight: 58.8 kg Body Mass Index (BMI) 22.9 Intake and Output for Last 24 Hours 01/17/19 01/18/19 01/19/19 23:59 23:59 23:59 Intake Total 360 / 360 440 / 440 Balance 360 / 360 440 / 440 Laboratory Results 01/18/19 12:03: POC Glucose 120 H 01/18/19 17:08: POC Glucose 130 H 01/18/19 21:01: POC Glucose 130 H 01/19/19 06:06: POC Glucose 115 H Current Medications Acetaminophen (Tylenol) 500 mg PO Q6H PRN PRN PRN Reason: HEADACHE Last Admin: 01/15/19 20:24 Dose: 500 mg Documented by: Atorvastatin Calcium (Lipitor) 20 mg PO QHS [facility] Last Admin: 01/18/19 21:02 Dose: 20 mg Documented by: Bisacodyl (Dulcolax) 10 mg RECTAL .PRN X 1 PRN PRN Reason: Constipation Calcium Carbonate (Os-Gonzalez 500) 500 mg PO BID [facility] Last Admin: 01/18/19 21:02 Dose: 500 mg Documented by: [facility]amethasone (Decadron) 2 mg PO TIDCM [facility] Stop: 02/01/19 08:01 Dexamethasone (Decadron) 4 mg PO Q8H [facility] Stop: 01/21/19 06:01 Last Admin: 01/19/19 05:52 Dose: 4 mg Documented by: [facility] ([facility]ron) [facility] Stop: 01/26/19 17:01 Famotidine (Pepcid) 20 mg PO BID [facility] Last Admin: 01/18/19 21:02 Dose: 20 mg Documented by: Heparin Sodium (Porcine) (Heparin Na) 5,000 unit SC Q12 [facility] Last Admin: 01/18/19 21:02 Dose: 5,000 unit Documented by: Hydrochlorothiazide (Hctz) 25 mg PO DAILY [facility] Last Admin: 01/18/19 08:45 Dose: 25 mg Documented by: Losartan Potassium (Cozaar) 100 mg PO DAILY [facility] Last Admin: 01/18/19 08:46 Dose: 100 mg Documented by: Magnesium Hydroxide (Milk Of Magnesia) 30 ml PO .PRN X 1 PRN PRN Reason: Constipation Metformin HCl (Glucophage Xr) 500 mg PO DAILY@1700 [facility] Last Admin: 01/18/19 17:34 Dose: 500 mg Documented by: Multivitamins (Multivitamin) 1 tablet PO DAILY@0800 [facility] Last Admin: 01/18/19 08:46 Dose: 1 tablet Documented by: Ondansetron HCl (Zofran Odt) 4 mg PO Q8H PRN PRN PRN Reason: nasuea Last Admin: 01/19/19 06:35 Dose: 4 mg Documented by: Oxycodone HCl (Oxyir) 0.5 - 1 mg PO Q8H PRN PRN PRN Reason: pain Senna/Docusate Sodium (Senokot-S, Sarai-Colace) 2 tablet PO BID [facility] Last Admin: 01/18/19 21:04 Dose: Not Given Documented by: Topiramate (Topamax) 25 mg PO BID [facility] Last Admin: 01/18/19 21:02 Dose: 25 mg Documented by: Medical Necessity - Tobacco Use Smoking Status: Former smoker Tobacco Use: Non-smoker Assessment/Plan All Active Problems (Last Updated 01/15/19 @ 20:19 by Librado De Santiago DO) Debility (Acute) Hydrocephalus (Acute) S/P CLOTHES SEPARATOR shunt (Acute) 1. Nausea, intermittent, on Zofran Hold metformin as that could be the culprit of her nausea, make Zofran every 6h prn 2. Normal pressure hydrocephalus, s/p CLOTHES SEPARATOR shunt On Decadron taper Follow-up with neurosurgery planned 3. Hypertension, controlled, continue on Losartan and HCTZ 4. Type II DM, on metformin, will hold metformin for now as metformin could be the culprit of her nausea Continue with blood glucose checks and insulin sliding scale 5. Hyperlipidemia, on statin 6. DVT PPx- Heparin Sc Code Visit Inpatient E&M: 10688 Subs Hosp L2
[2019-01-19] MEDS: hydroCHLOROthiazide 25 MG Tablet PO (08:32)
[2019-01-19] MEDS: Losartan Potassium 100 MG Tablet PO (08:32)
[2019-01-19] MEDS: Multivitamins,Therapeutic Tablet 1 TABLET PO (08:32)
[2019-01-19] MEDS: Famotidine 20 MG Tablet PO ×2 (08:33→21:04)
[2019-01-19] MEDS: Heparin Injection (Vial) 5,000 UNIT/ML VIAL 5000 UNIT SC ×2 (08:33→21:05)
[2019-01-19] MEDS: Topiramate 25 MG Tablet PO ×2 (08:34→21:04)
[2019-01-19 10:00] VITALS: BP 118/68; PULSE 67; RESP 16; TEMP 36.8; O2SAT 99
[2019-01-19 11:21] LABS: Bedside Glucose 185 mg/dL (70-110)
--- NOTE | 2019-01-19 13:40 | PN.NEURO_ITS ---
Patient Problems: Active and Suspected Problems (Last Updated 01/15/19 @ 20:19 by Librado De Santiago DO) Debility (Acute) Hydrocephalus (Acute) S/P ROUGHING MILL OPERATOR shunt (Acute) Subjective: No issues overnight. Care discussed with the nursing staff. - Physical Exam Vitals/I&O's: Vital Signs Temp Pulse Resp BP Pulse Ox 98.3 F 67 16 118/68 99 01/19/19 10:00 01/19/19 10:00 01/19/19 10:00 01/19/19 10:00 01/19/19 10:00 Oxygen Delivery Method Room Air Weight: 58.8 kg Body Mass Index (BMI) 22.9 Intake and Output for Last 24 Hours 01/17/19 01/18/19 01/19/19 23:59 23:59 23:59 Intake Total 360 / 360 440 / 440 420 / 420 Balance 360 / 360 440 / 440 420 / 420 General: Alert HEENT: Normocephalic Neck: Supple Lungs: Normal air movement Cardiovascular: Normal S1, Normal S2 Abdomen: Bowel Sounds Present Extremities: No cyanosis Neurological: - - Conscious, alert, AOA x3, CN II to XII grossly intact, power 5/5 both upper and lower extremities, plantars B/L flexor, no pronator drift, no sensory loss, no cerebellar signs, gait deferred, reflexes + B/L B/S/T/K/A, No NR, fundus not visualized Psych/Mental Status: Normal Affect Laboratory Results 01/18/19 17:08: POC Glucose 130 H 01/18/19 21:01: POC Glucose 130 H 01/19/19 06:06: POC Glucose 115 H 01/19/19 11:10: POC Glucose 185 H Current Medications Acetaminophen (Tylenol) 500 mg PO Q6H PRN PRN PRN Reason: HEADACHE Last Admin: 01/15/19 20:24 Dose: 500 mg Documented by: Atorvastatin Calcium (Lipitor) 20 mg PO QHS [facility] Last Admin: 01/18/19 21:02 Dose: 20 mg Documented by: Bisacodyl (Dulcolax) 10 mg RECTAL .PRN X 1 PRN PRN Reason: Constipation Calcium Carbonate (Os-Gonzalez 500) 500 mg PO BID [facility] Last Admin: 01/19/19 09:05 Dose: Not Given Documented by: [facility] Dexamethasone (Decadron) 2 mg PO TIDCM [facility] Stop: 02/01/19 08:01 Dexamethasone (Decadron) 4 mg PO Q8H [facility] Stop: 01/21/19 06:01 Last Admin: 01/19/19 05:52 Dose: 4 mg Documented by: Dexamethasone (Decadron) 4 mg PO BIDCM [facility] Stop: 01/26/19 17:01 Famotidine (Pepcid) 20 mg PO BID [facility] Last Admin: 01/19/19 08:33 Dose: 20 mg Documented by: Heparin Sodium (Porcine) (Heparin Na) 5,000 unit SC Q12 [facility] Last Admin: 01/19/19 08:33 Dose: 5,000 unit Documented by: Hydrochlorothiazide (Hctz) 25 mg PO DAILY [facility] Last Admin: 01/19/19 08:32 Dose: 25 mg Documented by: Losartan Potassium (Cozaar) 100 mg PO DAILY [facility] Last Admin: 01/19/19 08:32 Dose: 100 mg Documented by: Magnesium Hydroxide (Milk Of Magnesia) 30 ml PO .PRN X 1 PRN PRN Reason: Constipation Metformin HCl (Glucophage Xr) 500 mg PO DAILY@1700 [facility] Last Admin: 01/18/19 17:34 Dose: 500 mg Documented by: Multivitamins (Multivitamin) 1 tablet PO DAILY@0800 [facility] Last Admin: 01/19/19 08:32 Dose: 1 tablet Documented by: Ondansetron HCl (Zofran Odt) 4 mg PO Q8H PRN PRN PRN Reason: nasuea Last Admin: 01/19/19 06:35 Dose: 4 mg Documented by: Oxycodone HCl (Oxyir) 0.5 - 1 mg PO Q8H PRN PRN PRN Reason: pain Senna/Docusate Sodium (Senokot-S, Sarai-Colace) 2 tablet PO BID [facility] Last Admin: 01/19/19 09:05 Dose: Not Given Documented by: Topiramate (Topamax) 25 mg PO BID [facility] Last Admin: 01/19/19 08:34 Dose: 25 mg Documented by: STROKE Vital Signs/Narrative: Vital Signs Temp Pulse Resp BP Pulse Ox 01/19/19 10:00 98.3 F 67 16 118/68 99 Medical Necessity - Tobacco Use Smoking Status: Former smoker Tobacco Use: Non-smoker Assessment/Plan All Active Problems (Last Updated 01/15/19 @ 20:19 by Librado De Santiago DO) Debility (Acute) Hydrocephalus (Acute) S/P ROUGHING MILL OPERATOR shunt (Acute) The patient is a 73 year old F with PMH HTN, HLD, DM, history of cerebellar mass status post resection admitted to [facility] on 01/15/2019 for debility secondary to normal pressure hydrocephalus status post ROUGHING MILL OPERATOR shunt placement, for greater than 3 hours of therapy daily with a goal of returning home at or near her prior level of independence. History is obtained from the patient as well as from medical records. Per documentation patient had a cerebellar mass that was r esected on 11/29/2018, later patient was discharged in stable condition and readmitted on 01/01/2019 to [facility] for imbalance and intermittent nausea vomiting, diagnostic test at that time revealed hydrocephalus, a lumbar drain was placed initially at that time per documentation and patient was observed for subsequent improvement in the symptoms, she was then discharged on January 06, 2019, later patient was readmitted to [facility] on 01/07/2019 with nausea vomiting and intermittent headache along with balance issues and gait instability, per documentation patient had been confused since the prior discharge from [facility] and was not remembering to intermittent events, on 01/10/2019 patient underwent ROUGHING MILL OPERATOR shunt placement for NPH by Dr. Megan Delaney at [facility], and per documentation patient had post craniectomy aseptic meningitis. Per patient post her cerebellar mass resection in November 2018 later she developed falls and balance issues, gait instability but denies any memory loss or urinary incontinence. At present patient denies any headache, dizziness, visual disturbances, speech disturbances, focal motor weakness, sensory loss or pain. Per patient she lives alone, prior to her surgery in November 2018 she was driving, denied any falls prior to that, was not using cane or walker to ambulate prior to surgery in November 2018. Per patient she lives in independent house and has 2 steps to get into the house. 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 Megan Delaney?further recommendation and management per neurosurgery Dr. Megan Delaney. On dexamethasone tapering dose. On famotidine and calcium. Topamax 25 mg p.o. twice daily -HTN?on losartan and HCTZ. BP under control. Avoid hypotension -HLD?on atorvastatin -DM on metformin ER -GI/DVT prophylaxis?on famotidine/heparin 5000 units subcu twice daily, SCDs, AIMEE hose -Fall precautions -Further medical management per hospitalist recommendation -Follow up with PCP and neurosurgery Dr. Megan Delaney on discharge as outpatient
[2019-01-19 20:47] VITALS: BP 110/66; PULSE 64; RESP 16; TEMP 36.7; O2SAT 98
[2019-01-19] MEDS: Atorvastatin Calcium 20 MG Tablet PO (21:04)
[2019-01-19] MEDS: Senna/Docusate Sodium 1 Tablet 2 TABLET PO (21:04)
[2019-01-19 21:46] LABS: Bedside Glucose 177 mg/dL (70-110)
[2019-01-20] MEDS: Ondansetron ODT 4 MG Tablet PO (06:02)
[2019-01-20] MEDS: dexAMETHasone 4 MG Tablet PO ×3 (06:02→22:27)
--- NOTE | 2019-01-20 06:10 | NURSING ---
Refused HS shower (states had one in morning) or shower at this time. Requesting to get on nightly shower schedule when possible
[2019-01-20 06:40] LABS: Bedside Glucose 154 mg/dL (70-110)
[2019-01-20] MEDS: Multivitamins,Therapeutic Tablet 1 TABLET PO (09:05)
[2019-01-20] MEDS: Losartan Potassium 100 MG Tablet PO (09:06)
[2019-01-20] MEDS: hydroCHLOROthiazide 25 MG Tablet PO (09:06)
[2019-01-20] MEDS: Calcium (Elemental) 500 MG Tablet PO ×2 (09:07→22:20)
[2019-01-20] MEDS: Famotidine 20 MG Tablet PO ×2 (09:07→22:20)
[2019-01-20] MEDS: Heparin Injection (Vial) 5,000 UNIT/ML VIAL 5000 UNIT SC ×2 (09:07→22:27)
[2019-01-20] MEDS: Topiramate 25 MG Tablet PO ×2 (09:08→22:20)
[2019-01-20 10:00] VITALS: BP 116/66; PULSE 57; RESP 18; TEMP 36.9; O2SAT 97
[2019-01-20 11:26] LABS: Bedside Glucose 164 mg/dL (70-110)
[2019-01-20] MEDS: Senna/Docusate Sodium 1 Tablet 2 TABLET PO ×2 (11:31→22:20)
[2019-01-20] MEDS: Acetaminophen 500 MG Tablet PO (12:59)
[2019-01-20 16:06] LABS: Bedside Glucose 142 mg/dL (70-110)
[2019-01-20 20:23] VITALS: BP 115/74; PULSE 65; RESP 18; TEMP 36.6; O2SAT 95
[2019-01-20 21:11] LABS: Bedside Glucose 191 mg/dL (70-110)
[2019-01-20 22:00] VITALS: PULSE 62; RESP 18; O2SAT 96
[2019-01-20] MEDS: Atorvastatin Calcium 20 MG Tablet PO (22:20)
[2019-01-21 06:46] LABS: Bedside Glucose 120 mg/dL (70-110)
[2019-01-21] MEDS: dexAMETHasone 4 MG Tablet PO ×2 (06:53→17:01)
[2019-01-21 09:00] VITALS: BP 118/64; PULSE 64; RESP 16; TEMP 36.6; O2SAT 98
[2019-01-21] MEDS: Losartan Potassium 100 MG Tablet PO (09:07)
[2019-01-21] MEDS: Heparin Injection (Vial) 5,000 UNIT/ML VIAL 5000 UNIT SC ×2 (09:07→21:51)
[2019-01-21] MEDS: hydroCHLOROthiazide 25 MG Tablet PO (09:07)
[2019-01-21] MEDS: Senna/Docusate Sodium 1 Tablet 2 TABLET PO ×2 (09:08→21:52)
[2019-01-21] MEDS: Topiramate 25 MG Tablet PO ×2 (09:08→21:53)
[2019-01-21] MEDS: Famotidine 20 MG Tablet PO ×2 (09:08→21:52)
[2019-01-21 11:31] LABS: Bedside Glucose 152 mg/dL (70-110)
[2019-01-21] MEDS: Ondansetron ODT 4 MG Tablet PO (12:03)
--- NOTE | 2019-01-21 12:06 | NURSING ---
pt ambulated hallways with FWW x1 assist. Tolerated well.
--- NOTE | 2019-01-21 13:55 | PCM.PN.HOSP ---
Patient Problems: Active and Suspected Problems (Last Updated 01/15/19 @ 20:19 by Librado De Santiago DO) Debility (Acute) Hydrocephalus (Acute) S/P EXTRUSION DIE REPAIR MANAGER shunt (Acute) Subjective: Follow-up on debility s/p meningioma resection: Patient was seen and examined. Still complains of dyspepsia. Requiring frequent use of Zofran. Her last bowel movement was 01/17/19. Metformin was held to see if that was contributing to her nausea. Difference to regimen prescribed. Would order KUB if nausea if persistent. Patient may need gastric emptying study if this continues to be a problem. Objective: Physical exam: General: Alert, Cooperative, No apparent distress HEENT: Atraumatic, Normocephalic, - - Incision on right scalp is stapled and clean and intact without erythema or purulence. Oral: Moist Mucosa, No Gingival or Mucosal Lesions/ Ulcerations Neck: No Nodes, Trachea Midline Lungs: Clear to auscultation, Normal air movement, No rhonchi, No wheeze, No rales Cardiovascular: Regular rate, Regular Rhythm, Normal S1, Normal S2, No murmurs Abdomen: Bowel Sounds Present, Soft, Non Tender, Non-Distended, No Hepato-splenomegaly Extremities: No edema, No Calf Tenderness Skin: No rashes, No breakdown Musculoskeletal: No Tenderness to Palpation of Joints or Extremities, No Muscle Wasting Psych/Mental Status: Normal Affect, Appropriate Vitals/I&O's: Vital Signs Temp Pulse Resp BP Pulse Ox 98 F 64 16 118/64 98 01/21/19 09:00 01/21/19 09:00 01/21/19 09:00 01/21/19 09:00 01/21/19 09:00 Oxygen Delivery Method Room Air Weight: 58.8 kg Body Mass Index (BMI) 22.9 Intake and Output for Last 24 Hours 01/19/19 01/20/19 01/21/19 23:59 23:59 23:59 Intake Total 670 / 670 480 / 480 Balance 670 / 670 480 / 480 Laboratory Results 01/20/19 16:02: POC Glucose 142 H 01/20/19 20:54: POC Glucose 191 H 01/21/19 06:24: POC Glucose 120 H 01/21/19 11:24: POC Glucose 152 H Current Medications Acetaminophen (Tylenol) 500 mg PO Q6H PRN PRN PRN Reason: HEADACHE Last Admin: 01/20/19 12:59 Dose: 500 mg Documented by: Atorvastatin Calcium (Lipitor) 20 mg PO QHS [facility] Last Admin: 01/20/19 22:20 Dose: 20 mg Documented by: Bisacodyl (Dulcolax) 10 mg RECTAL .PRN X 1 PRN PRN Reason: Constipation Calcium Carbonate (Os-Gonzalez 500) 500 mg PO BID [facility] Last Admin: 01/21/19 09:08 Dose: Not Given Documented by: [facility] Dexamethasone (Decadron) 2 mg PO TIDCM [facility] Stop: 02/01/19 08:01 [facility] Stop: 01/26/19 17:01 Dextrose (D50w Syringe) 0 gm IV X1 PRN; Protocol PRN Reason: Hypoglycemia Famotidine (Pepcid) 20 mg PO BID [facility] Last Admin: 01/21/19 09:08 Dose: 20 mg Documented by: Glucagon () 1 mg IM .X1 PRN PRN Reason: Hypoglycemia Heparin Sodium (Porcine) (Heparin Na) 5,000 unit SC Q12 [facility] Last Admin: 01/21/19 09:07 Dose: 5,000 unit Documented by: Hydrochlorothiazide (Hctz) 25 mg PO DAILY [facility] Last Admin: 01/21/19 09:07 Dose: 25 mg Documented by: Losartan Potassium (Cozaar) 100 mg PO DAILY [facility] Last Admin: 01/21/19 09:07 Dose: 100 mg Documented by: Magnesium Hydroxide (Milk Of Magnesia) 30 ml PO .PRN X 1 PRN PRN Reason: Constipation Multivitamins (Multivitamin) 1 tablet PO DAILY@0800 [facility] Last Admin: 01/21/19 09:07 Dose: Not Given Documented by: Ondansetron HCl (Zofran Odt) 4 mg PO Q6H PRN PRN PRN Reason: NAUSEA Last Admin: 01/21/19 12:03 Dose: 4 mg Documented by: Oxycodone HCl (Oxyir) 0.5 - 1 mg PO Q8H PRN PRN PRN Reason: pain Senna/Docusate Sodium (Senokot-S, Sarai-Colace) 2 tablet PO BID [facility] Last Admin: 01/21/19 09:08 Dose: 2 tablet Documented by: Topiramate (Topamax) 25 mg PO BID [facility] Last Admin: 01/21/19 09:08 Dose: 25 mg Documented by: Medical Necessity - Tobacco Use Smoking Status: Former smoker Tobacco Use: Non-smoker Assessment/Plan All Active Problems (Last Updated 01/15/19 @ 20:19 by Librado De Santiago DO) Debility (Acute) Hydrocephalus (Acute) S/P EXTRUSION DIE REPAIR MANAGER shunt (Acute) 1. Dyspepsia, will start patient on simethicone, Mylanta, PPI twice daily Patient has constipation. Stool softeners ordered Continue to hold metformin as that could be attributing also May need KUB if persistent. Consider gastric emptying study if this remains an issue 2. Normal pressure hydrocephalus, s/p EXTRUSION DIE REPAIR MANAGER shunt On Decadron taper Follow-up with neurosurgery planned 3. Hypertension, controlled, continue on Losartan and HCTZ 4. Type II DM, on metformin, will hold metformin for now as metformin could be the culprit of her nausea Continue with blood glucose checks and insulin sliding scale 5. Hyperlipidemia, on statin 6. DVT PPx- Heparin Sc Code Visit Inpatient E&M: 98672 Subs Hosp L2
[2019-01-21] MEDS: Magnesium Hydroxide 30 ML UDC PO (14:16)
[2019-01-21 16:51] LABS: Bedside Glucose 131 mg/dL (70-110)
[2019-01-21 19:50] VITALS: BP 115/77; PULSE 64; RESP 18; TEMP 36.8; O2SAT 95
[2019-01-21 20:51] LABS: Bedside Glucose 186 mg/dL (70-110)
[2019-01-21] MEDS: Atorvastatin Calcium 20 MG Tablet PO (21:52)
[2019-01-21] MEDS: Pantoprazole Sodium 40 MG Tablet PO (21:52)
[2019-01-21 22:00] VITALS: PULSE 64; RESP 18; O2SAT 95
--- NOTE | 2019-01-22 05:19 | NURSING ---
Pt refused bowel protocol but states she will wait till after returning from today's dr barreto.
[2019-01-22 06:15] LABS: Bedside Glucose 116 mg/dL (70-110)
[2019-01-22] MEDS: hydroCHLOROthiazide 25 MG Tablet PO (08:02)
[2019-01-22] MEDS: Topiramate 25 MG Tablet PO ×2 (08:02→19:56)
[2019-01-22] MEDS: Pantoprazole Sodium 40 MG Tablet PO ×2 (08:02→19:57)
[2019-01-22] MEDS: dexAMETHasone 4 MG Tablet PO ×2 (08:02→16:53)
[2019-01-22] MEDS: Famotidine 20 MG Tablet PO ×2 (08:02→19:56)
[2019-01-22] MEDS: Losartan Potassium 100 MG Tablet PO (08:02)
[2019-01-22] MEDS: Heparin Injection (Vial) 5,000 UNIT/ML VIAL 5000 UNIT SC ×2 (08:03→19:55)
[2019-01-22 08:38] VITALS: BP 117/64; PULSE 61; RESP 16; TEMP 36.6; O2SAT 98
[2019-01-22] MEDS: Ondansetron ODT 4 MG Tablet PO (09:28)
--- NOTE | 2019-01-22 10:51 | CASEMGMT ---
Social Work IDT met with patient and daughter for Team Meeting. Discussed patient's progress in therapy. Pt is SBA for transfers, walked on several different surfaces at [facility] for 250 ft with FWW - right foot tends to shuffle when fatigued, but corrects with cues. Pt is CGA with steps and the goal is for pt to DC home alone safely, without a device or with a cane as pt did not use a device prior. Pt is SBA for all ADLS, has to pace self with tasks as still experiences nausea and some headaches. Pt has appt with physician on this date on those issues. ST is working with pt on some mild cognitive deficits and difficulty with attention - but making progress. Explained Medicare ELOS 10 days with DC date 01/25. Pt and dtr leaning toward SNF initially then home alone safely. Pt's in TCU prior and would a referral made there, if that is that is chosen. Will continue to follow. Gabby Holbrook, SENIOR PRO[employer]OLS SPECIALIST ALARM FIELD TECHNICIAN
[2019-01-22] MEDS: Acetaminophen 500 MG Tablet PO (13:30)
--- NOTE | 2019-01-22 13:45 | PN.NEURO_ITS ---
Patient Problems: Active and Suspected Problems (Last Updated 01/15/19 @ 20:19 by Librado De Santiago DO) Debility (Acute) Hydrocephalus (Acute) S/P TUBE AND MANIFOLD BUILDER shunt (Acute) Subjective: No issues overnight. Case discussed with the nursing staff. Staffed in the team meeting today. All questions were answered. Further therapy details per PT/OT/ST notes. Metformin held by the hospitalist possibly due to nausea. Not much improvement in her symptoms. Patient has appointment Dr. Megan Delaney this morning and discuss issues with neurosurgery. Per family patient is due to get CT head done by Dr. Megan Delaney's office. Patient denies any worsening headache. - Physical Exam Vitals/I&O's: Vital Signs Temp Pulse Resp BP Pulse Ox 97.8 F 61 16 117/64 98 01/22/19 08:38 01/22/19 08:38 01/22/19 08:38 01/22/19 08:38 01/22/19 08:38 Oxygen Delivery Method Room Air Weight: 58.8 kg Body Mass Index (BMI) 22.9 Intake and Output for Last 24 Hours 01/20/19 01/21/19 01/22/19 23:59 23:59 23:59 Intake Total 480 / 480 Balance 480 / 480 General: Alert HEENT: Normocephalic Neck: Supple Lungs: Normal air movement Cardiovascular: Normal S1, Normal S2 Abdomen: Bowel Sounds Present Extremities: No cyanosis Neurological: - - Conscious, alert, AOA x3, CN II to XII grossly intact, power 5/5 both upper and lower extremities, plantars B/L flexor, no pronator drift, no sensory loss, no cerebellar signs, gait deferred, reflexes + B/L B/S/T/K/A, No NR, fundus not visualized Psych/Mental Status: Normal Affect Laboratory Results 01/21/19 16:47: POC Glucose 131 H 01/21/19 20:38: POC Glucose 186 H 01/22/19 06:04: POC Glucose 116 H Current Medications Acetaminophen (Tylenol) 500 mg PO Q6H PRN PRN PRN Reason: HEADACHE Last Admin: 01/22/19 13:30 Dose: 500 mg Documented by: Al Hydroxide/Mg Hydroxide (Mylanta Ii) 30 ml PO Q6H PRN PRN PRN Reason: DYSPEPSIA Atorvastatin Calcium (Lipitor) 20 mg PO QHS [facility] Last Admin: 01/21/19 21:52 Dose: 20 mg Documented by: Bisacodyl (Dulcolax) 10 mg RECTAL .PRN X 1 PRN PRN Reason: Constipation Calcium Carbonate (Os-Gonzalez 500) 500 mg PO BID [facility] Last Admin: 01/22/19 08:02 Dose: Not Given Documented by: [facility] Dexamethasone (Decadron) 2 mg PO TIDCM [facility] Stop: 02/01/19 08:01 Dexamethasone (Decadron) 4 mg PO BIDCM [facility] Stop: 01/26/19 17:01 Last Admin: 01/22/19 08:02 Dose: 4 mg Documented by: Dextrose (D50w Syringe) 0 gm IV X1 PRN; Protocol PRN Reason: Hypoglycemia Famotidine (Pepcid) 20 mg PO BID [facility] Last Admin: 01/22/19 08:02 Dose: 20 mg Documented by: Glucagon () 1 mg IM .X1 PRN PRN Reason: Hypoglycemia Heparin Sodium (Porcine) (Heparin Na) 5,000 unit SC Q12 [facility] Last Admin: 01/22/19 08:03 Dose: 5,000 unit Documented by: Hydrochlorothiazide (Hctz) 25 mg PO DAILY [facility] Last Admin: 01/22/19 08:02 Dose: 25 mg Documented by: Losartan Potassium (Cozaar) 100 mg PO DAILY [facility] Last Admin: 01/22/19 08:02 Dose: 100 mg Documented by: Magnesium Hydroxide (Milk Of Magnesia) 30 ml PO .PRN X 1 PRN PRN Reason: Constipation Last Admin: 01/21/19 14:16 Dose: 30 ml Documented by: Multivitamins (Multivitamin) 1 tablet PO DAILY@0800 [facility] Last Admin: 01/22/19 08:12 Dose: Not Given Documented by: Ondansetron HCl (Zofran Odt) 4 mg PO Q6H PRN PRN PRN Reason: NAUSEA Last Admin: 01/22/19 09:28 Dose: 4 mg Documented by: Oxycodone HCl (Oxyir) 0.5 - 1 mg PO Q8H PRN PRN PRN Reason: pain Pantoprazole Sodium (Protonix) 40 mg PO BID [facility] Last Admin: 01/22/19 08:02 Dose: 40 mg Documented by: Senna/Docusate Sodium (Senokot-S, Sarai-Colace) 2 tablet PO BID [facility] Last Admin: 01/22/19 08:12 Dose: Not Given Documented by: Simethicone (Mylicon) 80 mg PO TIDPC [facility] Stop: 01/23/19 18:01 Last Admin: 01/22/19 13:32 Dose: Not Given Documented by: Topiramate (Topamax) 25 mg PO BID [facility] Last Admin: 01/22/19 08:02 Dose: 25 mg Documented by: Medical Necessity - Tobacco Use Smoking Status: Former smoker Tobacco Use: Non-smoker Assessment/Plan All Active Problems (Last Updated 01/15/19 @ 20:19 by Librado De Santiago DO) Debility (Acute) Hydrocephalus (Acute) S/P TUBE AND MANIFOLD BUILDER shunt (Acute) The patient is a 73 year old F with PMH HTN, HLD, DM, history of cerebellar mass status post resection admitted to [facility] on 01/15/2019 for debility secondary to normal pressure hydrocephalus status post TUBE AND MANIFOLD BUILDER shunt placement, for greater than 3 hours of therapy daily with a goal of returning home at or near her prior level of independence. History is obtained from the patient as well as from medical records. Per documentation patient had a cerebellar mass that was resected on 11/29/2018, later patient was discharged in stable condition and readmitted on 01/01/2019 to [facility] for imbalance and intermittent nausea vomiting, diagnostic test at that time revealed hydrocephalus, a lumbar drain was placed initially at that time per documentatio n and patient was observed for subsequent improvement in the symptoms, she was then discharged on January 06, 2019, later patient was readmitted to [facility] on 01/07/2019 with nausea vomiting and intermittent headache along with balance issues and gait instability, per documentation patient had been confused since the prior discharge from [facility] and was not remembering to intermittent events, on 01/10/2019 patient underwent TUBE AND MANIFOLD BUILDER shunt placement for NPH by Dr. Megan Delaney at [facility], and per documentation patient had post craniectomy aseptic meningitis. Per patient post her cerebellar mass resection in November 2018 later she developed falls and balance issues, gait instability but denies any memory loss or urinary incontinence. At present patient denies any headache, dizziness, visual disturbances, speech disturbances, focal motor weakness, sensory loss or pain. Per patient she lives alone, prior to her surgery in November 2018 she was driving, denied any falls prior to that, was not using cane or walker to ambulate prior to surgery in November 2018. Per patient she lives in independent house and has 2 steps to get into the house. 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 Megan Delaney?further recommendation and management per neurosurgery Dr. Megan Delaney. On dexamethasone tapering dose. On famotidine and calcium. Topamax 25 mg p.o. twice daily -HTN?on losartan and HCTZ. BP under control. Avoid hypotension -HLD?on atorvastatin -DM on metformin ER but on hold from hospitalist at present. Further GI work up for nausea per hospitalist and GI as outpatient. -GI/DVT prophylaxis?on famotidine/heparin 5000 units subcu twice daily, SCDs, AIMEE christiansen -Fall precautions -Further medical management per hospitalist recommendation -Follow up with PCP and neurosurgery Dr. Megan Delaney on discharge as outpatient
[2019-01-22 17:16] LABS: Bedside Glucose 159 mg/dL (70-110)
[2019-01-22 19:36] VITALS: BP 103/62; PULSE 69; RESP 16; TEMP 36.9; O2SAT 98
[2019-01-22] MEDS: Senna/Docusate Sodium 1 Tablet 2 TABLET PO (19:55)
[2019-01-22] MEDS: Atorvastatin Calcium 20 MG Tablet PO (19:56)
[2019-01-22 21:20] LABS: Bedside Glucose 198 mg/dL (70-110)
[2019-01-22 22:00] VITALS: PULSE 69; RESP 16; O2SAT 98
[2019-01-23] MEDS: Acetaminophen 500 MG Tablet PO (06:38)
[2019-01-23 07:23] VITALS: BP 117/71; PULSE 65; RESP 16; TEMP 36.8; O2SAT 98
[2019-01-23] MEDS: Ondansetron ODT 4 MG Tablet PO (08:57)
[2019-01-23] MEDS: Senna/Docusate Sodium 1 Tablet 2 TABLET PO ×2 (10:49→21:27)
[2019-01-23] MEDS: dexAMETHasone 4 MG Tablet PO ×2 (10:49→17:12)
[2019-01-23] MEDS: Losartan Potassium 100 MG Tablet PO (10:49)
[2019-01-23] MEDS: Heparin Injection (Vial) 5,000 UNIT/ML VIAL 5000 UNIT SC ×2 (10:50→21:28)
[2019-01-23] MEDS: hydroCHLOROthiazide 25 MG Tablet PO (10:50)
[2019-01-23] MEDS: Famotidine 20 MG Tablet PO ×2 (10:50→21:28)
[2019-01-23] MEDS: Topiramate 25 MG Tablet PO ×2 (10:52→21:27)
[2019-01-23] MEDS: Pantoprazole Sodium 40 MG Tablet PO ×2 (10:52→21:28)
[2019-01-23 11:51] LABS: Bedside Glucose 118 mg/dL (70-110)
--- NOTE | 2019-01-23 13:15 | PCM.PN.NEU ---
Patient Problems: Active and Suspected Problems (Last Updated 01/15/19 @ 20:19 by Librado De Santiago DO) Debility (Acute) Hydrocephalus (Acute) S/P FLOATING LABOR GANG SUPERVISOR shunt (Acute) Subjective: No issues overnight. Care discussed with the nursing staff. Patient saw Dr. Megan Delaney yesterday, shunt adjustments done by neurosurgery, will defer to neurosurgery for further shunt management. Patient denies any headache at present - Physical Exam Vitals/I&O's: Vital Signs Temp Pulse Resp BP Pulse Ox 98.2 F 65 16 117/71 98 01/23/19 07:23 01/23/19 07:23 01/23/19 07:23 01/23/19 07:23 01/23/19 07:23 Oxygen Delivery Method Room Air Weight: 58.8 kg Body Mass Index (BMI) 22.9 General: Alert HEENT: Normocephalic Neck: Supple Lungs: Normal air movement Cardiovascular: Normal S1, Normal S2 Abdomen: Bowel Sounds Present Extremities: No cyanosis Neurological: - - Conscious, alert, AOA x3, CN II to XII grossly intact, power 5/5 both upper and lower extremities, plantars B/L flexor, no pronator drift, no sensory loss, no cerebellar signs, gait deferred, reflexes + B/L B/S/T/K/A, No NR, fundus not visualized Psych/Mental Status: Normal Affect Laboratory Results 01/22/19 16:40: POC Glucose 159 H 01/22/19 21:14: POC Glucose 198 H 01/23/19 11:44: POC Glucose 118 H Current Medications Acetaminophen (Tylenol) 500 mg PO Q6H PRN PRN PRN Reason: HEADACHE Last Admin: 01/23/19 06:38 Dose: 500 mg Documented by: Al Hydroxide/Mg Hydroxide (Mylanta Ii) 30 ml PO Q6H PRN PRN PRN Reason: DYSPEPSIA Atorvastatin Calcium (Lipitor) 20 mg PO QHS [facility] Last Admin: 01/22/19 19:56 Dose: 20 mg Documented by: Bisacodyl (Dulcolax) 10 mg RECTAL .PRN X 1 PRN PRN Reason: Constipation Calcium Carbonate (Os-Gonzalez 500) 500 mg PO BID [facility] Last Admin: 01/23/19 10:52 Dose: Not Given Documented by: [facility] Stop: 02/04/19 17:01 Dexamethasone (Decadron) 2 mg PO TIDCM [facility] Stop: 02/01/19 08:01 Dexamethasone (Decadron) 4 mg PO BIDCM [facility] Stop: 01/26/19 17:01 Last Admin: 01/23/19 10:49 Dose: 4 mg Documented by: Dextrose (D50w Syringe) 0 gm IV X1 PRN; Protocol PRN Reason: Hypoglycemia Famotidine (Pepcid) 20 mg PO BID [facility] Last Admin: 01/23/19 10:50 Dose: 20 mg Documented by: Glucagon () 1 mg IM .X1 PRN PRN Reason: Hypoglycemia Heparin Sodium (Porcine) (Heparin Na) 5,000 unit SC Q12 [facility] Last Admin: 01/23/19 10:50 Dose: 5,000 unit Documented by: Hydrochlorothiazide (Hctz) 25 mg PO DAILY [facility] Last Admin: 01/23/19 10:50 Dose: 25 mg Documented by: Losartan Potassium (Cozaar) 100 mg PO DAILY [facility] Last Admin: 01/23/19 10:49 Dose: 100 mg Documented by: Magnesium Hydroxide (Milk Of Magnesia) 30 ml PO .PRN X 1 PRN PRN Reason: Constipation Last Admin: 01/21/19 14:16 Dose: 30 ml Documented by: Multivitamins (Multivitamin) 1 tablet PO DAILY@0800 [facility] Last Admin: 01/23/19 10:51 Dose: Not Given Documented by: Nutritional Formula (Lactose Free) (Glucerna Shake) 120 ml PO 4X/DAY [facility] Last Admin: 01/23/19 10:52 Dose: Not Given Documented by: Ondansetron HCl (Zofran Odt) 4 mg PO Q6H PRN PRN PRN Reason: NAUSEA Last Admin: 01/23/19 08:57 Dose: 4 mg Documented by: Oxycodone HCl (Oxyir) 0.5 - 1 mg PO Q8H PRN PRN PRN Reason: pain Pantoprazole Sodium (Protonix) 40 mg PO BID [facility] Last Admin: 01/23/19 10:52 Dose: 40 mg Documented by: Senna/Docusate Sodium (Senokot-S, Sarai-Colace) 2 tablet PO BID [facility] Last Admin: 01/23/19 10:49 Dose: 2 tablet Documented by: Simethicone (Mylicon) 80 mg PO TIDPC [facility] Stop: 01/23/19 18:01 Last Admin: 01/23/19 10:51 Dose: 80 mg Documented by: Topiramate (Topamax) 25 mg PO BID [facility] Last Admin: 01/23/19 10:52 Dose: 25 mg Documented by: Medical Necessity - Tobacco Use Smoking Status: Former smoker Tobacco Use: Non-smoker Assessment/Plan All Active Problems (Last Updated 01/15/19 @ 20:19 by Librado De Santiago DO) Debility (Acute) Hydrocephalus (Acute) S/P FLOATING LABOR GANG SUPERVISOR shunt (Acute) The patient is a 73 year old F with PMH HTN, HLD, DM, history of cerebellar mass status post resection admitted to [facility] on 01/15/2019 for debility secondary to normal pressure hydrocephalus status post FLOATING LABOR GANG SUPERVISOR shunt placement, for greater than 3 hours of therapy daily with a goal of returning home at or near her prior level of independence. History is obtained from the patient as well as from medical records. Per documentation patient had a cerebellar mass that was resected on 11/29/2018, later patient was discharged in stable condition and readmitted on 01/01/2019 to [facility] for imbalance and intermittent nausea vomiting, diagnostic test at that time revealed hydrocephalus, a lumbar drain was placed initially at that time per documentation and patient was observed for subsequent improvement in the symptoms, she was then discharged on January 06, 2019, later patient was readmitted to [facility] on 01/07/2019 with nausea vomiting and intermittent headache along with balance issues and gait instability, per documentation patient had been confused since the prior discharge from [facility] and was not remembering to intermittent events, on 01/10/2019 patient underwent FLOATING LABOR GANG SUPERVISOR shunt placement for NPH by Dr. Megan Delaney at [facility], and per documentation patient had post craniectomy aseptic meningitis. Per patient post her cerebellar mass resection in November 2018 later she developed falls and balance issues, gait instability but denies any memory loss or urinary incontinence. At present patient denies any headache, dizziness, visual disturbances, speech disturbances, focal motor weakness, sensory loss or pain. Per patient she lives alone, prior to her surgery in November 2018 [address] was [address], denied any falls prior to that, was not using cane or walker to ambulate prior to surgery in November 2018. Per patient she lives in independent house and has 2 steps to get into the house. 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 Megan Delaney?further recommendation and management per neurosurgery Dr. Megan Delaney. On dexamethasone tapering dose. On famotidine and calcium. Topamax 25 mg p.o. twice daily -HTN?on losartan and HCTZ. BP under control. Avoid hypotension -HLD?on atorvastatin -DM on metformin ER but was on hold from hospitalist, will restart. Further GI work up for nausea per hospitalist and GI as outpatient. -GI/DVT prophylaxis?on famotidine/heparin 5000 units subcu twice daily, SCDs, AIMEE hose -Fall precautions -Further medical management per hospitalist recommendation -Follow up with PCP and neurosurgery Dr. Megan Delaney on discharge as outpatient
--- NOTE | 2019-01-23 15:00 | PN_ITS ---
Patient Problems: Active and Suspected Problems (Last Updated 01/15/19 @ 20:19 by Librado De Santiago DO) Debility (Acute) Hydrocephalus (Acute) S/P MAKE UP WORKER shunt (Acute) Subjective: Patient seen and examined. She has no complaints today. She says her nausea is improving, and thinks it was due to her shunt. She saw her neurologist yesterday and had her shunt adjusted, which she thinks will help with her nausea. Review of systems otherwise negative. Vitals/I&O's: Vital Signs Temp Pulse Resp BP Pulse Ox 98.2 F 65 16 117/71 98 01/23/19 07:23 01/23/19 07:23 01/23/19 07:23 01/23/19 07:23 01/23/19 07:23 Oxygen Delivery Method Room Air Weight: 129 lb 10.109 oz Body Mass Index (BMI) 22.9 General: Alert, Oriented x3, Cooperative, No apparent distress HEENT: Atraumatic, PERRLA, EOMI, Normocephalic Oral: Moist Mucosa Neck: Supple, No JVD, Negative Carotid Bruits Lungs: Clear to auscultation, Normal air movement, No rhonchi, No wheeze, No rales Cardiovascular: Regular rate, Regular Rhythm, Normal S1, Normal S2, No murmurs Abdomen: Bowel Sounds Present, Soft, Non Tender, Non-Distended, No Hepato- splenomegaly Extremities: No clubbing, No cyanosis, No edema, Capillary Refill Less than 3 Seconds Skin: No rashes, No breakdown Musculoskeletal: No Tenderness to Palpation of Joints or Extremities Lymphatic: No Cervical, Supraclavicular, or Inguinal Adenopathy Neurological: Cranial nerves II-XII grossly intact, Neuro grossly intact, Motor Exam 5/5 strength throughout Psych/Mental Status: Normal Affect, Appropriate, Alert and oriented to time, place, person, mood and affect Laboratory Results 01/22/19 16:40: POC Glucose 159 H 01/22/19 21:14: POC Glucose 198 H 01/23/19 11:44: POC Glucose 118 H Current Medications Acetaminophen (Tylenol) 500 mg PO Q6H PRN PRN PRN Reason: HEADACHE Last Admin: 01/23/19 06:38 Dose: 500 mg Documented by: Al Hydroxide/Mg Hydroxide (Mylanta Ii) 30 ml PO Q6H PRN PRN PRN Reason: DYSPEPSIA Atorvastatin Calcium (Lipitor) 20 mg PO QHS [facility] Last Admin: 01/22/19 19:56 Dose: 20 mg Documented by: Bisacodyl (Dulcolax) 10 mg RECTAL .PRN X 1 PRN PRN Reason: Constipation Calcium Carbonate (Os-Gonzalez 500) 500 mg PO BID [facility] Last Admin: 01/23/19 10:52 Dose: Not Given Documented by: Dexamethasone (Decadron) 2 mg PO BIDCM [facility] Stop: 02/04/19 17:01 Dexamethasone (Decadron) 2 mg PO TIDCM [facility] Stop: 02/01/19 08:01 Dexamethasone (Decadron) 4 mg PO BIDCM [facility] Stop: 01/26/19 17:01 Last Admin: 01/23/19 10:49 Dose: 4 mg Documented by: Dextrose (D50w Syringe) 0 gm IV X1 PRN; Protocol PRN Reason: Hypoglycemia Famotidine (Pepcid) 20 mg PO BID [facility] Last Admin: 01/23/19 10:50 Dose: 20 mg Documented by: Glucagon () 1 mg IM .X1 PRN PRN Reason: Hypoglycemia Heparin Sodium (Porcine) (Heparin Na) 5,000 unit SC Q12 [facility] Last Admin: 01/23/19 10:50 Dose: 5,000 unit Documented by: Hydrochlorothiazide (Hctz) 25 mg PO DAILY [facility] Last Admin: 01/23/19 10:50 Dose: 25 mg Documented by: Losartan Potassium (Cozaar) 100 mg PO DAILY [facility] Last Admin: 01/23/19 10:49 Dose: 100 mg Documented by: Magnesium Hydroxide (Milk Of Magnesia) 30 ml PO .PRN X 1 PRN PRN Reason: Constipation Last Admin: 01/21/19 14:16 Dose: 30 ml Documented by: Multivitamins (Multivitamin) 1 tablet PO DAILY@0800 [facility] Last Admin: 01/23/19 10:51 Dose: Not Given Documented by: Nutritional Formula (Lactose Free) (Glucerna Shake) 120 ml PO 4X/DAY [facility] Last Admin: 01/23/19 14:36 Dose: Not Given Documented by: Ondansetron HCl (Zofran Odt) 4 mg PO Q6H PRN PRN PRN Reason: NAUSEA Last Admin: 01/23/19 08:57 Dose: 4 mg Documented by: Oxycodone HCl (Oxyir) 0.5 - 1 mg PO Q8H PRN PRN PRN Reason: pain Pantoprazole Sodium (Protonix) 40 mg PO BID [facility] Last Admin: 01/23/19 10:52 Dose: 40 mg Documented by: Senna/Docusate Sodium (Senokot-S, Sarai-Colace) 2 tablet PO BID [facility] Last Admin: 01/23/19 10:49 Dose: 2 tablet Documented by: [facility]) [facility] Stop: 01/23/19 18:01 Last Admin: 01/23/19 14:36 Dose: Not Given Documented by: Topiramate (Topamax) 25 mg PO BID [facility] Last Admin: 01/23/19 10:52 Dose: 25 mg Documented by: Medical Necessity - Tobacco Use Smoking Status: Former smoker Tobacco Use: Non-smoker Assessment/Plan All Active Problems (Last Updated 01/15/19 @ 20:19 by Librado De Santiago DO) Debility (Acute) Hydrocephalus (Acute) S/P MAKE UP WORKER shunt (Acute) 1. Normal pressure hydrocephalus * s/p MAKE UP WORKER shunt * on decadron taper * saw her neurosurgeon yesterday, and the shunt was adjusted. * PT/OT on board * 2. Dyspepsia * improved. THinks nausea was also due to her shunt, and says she feels better now shunt has been adjusted * on mylanta and simethicone * PPI bid * 3. Hypertension: controlled. on Losartan and hydrochlorthiazide 4. Type 2 diabetes mellitus * will resume metformin today, as patient says her nausea is better * ISS. Accuchecks ACHS * 5. Hyperlipidemia: on statin DVT prophylaxis: heparin Code Visit Inpatient E&M: 03164 Subs Hosp L2
--- NOTE | 2019-01-23 16:35 | CASEMGMT ---
Social Work Patient accepted at TCU. Notified pt and will DC 01/25. Gabby Holbrook, RELIABILITY SPECIALIST VACATION GUIDE
[2019-01-23 17:20] LABS: Bedside Glucose 171 mg/dL (70-110)
[2019-01-23] MEDS: Magnesium Hydroxide 30 ML UDC PO (18:55)
[2019-01-23 19:29] VITALS: BP 114/66; PULSE 70; RESP 16; TEMP 37; O2SAT 96
[2019-01-23 21:16] LABS: Bedside Glucose 178 mg/dL (70-110)
[2019-01-23] MEDS: Atorvastatin Calcium 20 MG Tablet PO (21:28)
[2019-01-23 22:00] VITALS: PULSE 70; RESP 16; O2SAT 96
[2019-01-24 06:40] LABS: Bedside Glucose 111 mg/dL (70-110)
[2019-01-24] MEDS: dexAMETHasone 4 MG Tablet PO ×2 (07:54→17:11)
[2019-01-24] MEDS: Topiramate 25 MG Tablet PO ×2 (07:54→21:07)
[2019-01-24] MEDS: Pantoprazole Sodium 40 MG Tablet PO ×2 (07:54→21:07)
[2019-01-24] MEDS: Famotidine 20 MG Tablet PO (07:54)
[2019-01-24] MEDS: Heparin Injection (Vial) 5,000 UNIT/ML VIAL 5000 UNIT SC ×2 (07:54→21:07)
[2019-01-24] MEDS: Multivitamins,Therapeutic Tablet 1 TABLET PO (07:54)
[2019-01-24] MEDS: Losartan Potassium 100 MG Tablet PO (07:54)
[2019-01-24] MEDS: hydroCHLOROthiazide 25 MG Tablet PO (07:54)
[2019-01-24] MEDS: Ondansetron ODT 4 MG Tablet PO (07:58)
[2019-01-24 09:07] VITALS: BP 130/84; PULSE 71; RESP 16; TEMP 36.3; O2SAT 98
[2019-01-24 12:06] LABS: Bedside Glucose 142 mg/dL (70-110)
--- NOTE | 2019-01-24 13:04 | PCM.TXEXTCAR ---
- Diet 01/15/19 19:39 Diet: Regular Diet - Wound(s) Rt frontal scalp Wound Type: Surgical Incision rt median scalp Wound Type: shunt Postauricular Wound Type: Surgical Incision RAC Wound Type: IV wound Superior Umbillicus Wound Type: Surgical Incision Epigastric Region Wound Type: Surgical Incision - Therapies Physical Therapy: Eval and Treat Occupational Therapy: Eval and Treat Speech Therapy: Eval and Treat - Problem/Diagnosis (1) Debility Status: Acute (2) HTN (hypertension) Status: Chronic (3) HLD (hyperlipidemia) Status: Chronic (4) Diabetes Status: Chronic (5) Hydrocephalus Status: Acute (6) Cerebellar mass Status: Chronic (7) S/P LIABILITY CLAIMS ADJUSTER shunt Status: Acute - Allergies/Procedures Done in Hospital Allergies/Adverse Reactions: Allergies cefepime Allergy (Verified 01/26/19 13:25) Anaphylaxis - Type of Care/Length of Stay Estimated LOS: Convalescent Care Less Than 30 days Type of Care Needed: Skilled Rehab Potential: Good Prognosis: Good - Additional Orders/Day of Discharge Day of Discharge: 01/25/19 - Dietary and Speech Recommendations Dietitian Recommendations/Changes: Recommend diet change to Carb Controlled/Cardiac Diet, consistency per SHEETER MACHINE OPERATOR recommendations. Given recent ? weight loss; please reweigh. Will add glucerna shake on medpass until reweigh to better assess wt status. - Follow Up Care Primary Care Physician: PIEDAD MULLINS [Other] Please follow up with your Primary Care Physician in: Follow-up with PCP in 1 to 2 weeks Please Follow Up With: Dr roman Delaney When: Follow-up with neurosurgery Dr. Roman Delaney on 01/29/2019
--- NOTE | 2019-01-24 13:08 | PCM.RU.DC ---
Rehab Discharge Summary DATE OF ADMISSION: 01/15/19 DATE OF DISCHARGE: 01/25/19 - Rehab Diagnosis debility secondary to normal pressure hydrocephalus status post MEDICAL STAFF SERVICES MANAGER shunt placement Patient Problems: Active and Suspected Problems (Last Updated 01/15/19 @ 20:19 by Librado De Santiago DO) Debility (Acute) Hydrocephalus (Acute) S/P MEDICAL STAFF SERVICES MANAGER shunt (Acute) Subjective: No issues overnight. Care discussed with the nursing staff. - Physical Exam Vitals/I&O's: Vital Signs Temp Pulse Resp BP Pulse Ox 97.4 F L 71 16 130/84 H 98 01/24/19 09:07 01/24/19 09:07 01/24/19 09:07 01/24/19 09:07 01/24/19 09:07 Oxygen Delivery Method Room Air Weight: 58.8 kg Body Mass Index (BMI) 22.9 General: Alert HEENT: Normocephalic Neck: Supple Lungs: Normal air movement Cardiovascular: Normal S1, Normal S2 Abdomen: Bowel Sounds Present Extremities: No cyanosis Neurological: - - Conscious, alert, AOA x3, CN II to XII grossly intact, power 5/5 both upper and lower extremities, plantars B/L flexor, no pronator drift, no sensory loss, no cerebellar signs, gait deferred, reflexes + B/L B/S/T/K/A, No NR, fundus not visualized Psych/Mental Status: Normal Affect Laboratory Results 01/23/19 17:14: POC Glucose 171 H 01/23/19 21:06: POC Glucose 178 H 01/24/19 06:15: POC Glucose 111 H 01/24/19 12:01: POC Glucose 142 H Current Medications Acetaminophen (Tylenol) 500 mg PO Q6H PRN PRN PRN Reason: HEADACHE Last Admin: 01/23/19 06:38 Dose: 500 mg Documented by: Al Hydroxide/Mg Hydroxide (Mylanta Ii) 30 ml PO Q6H PRN PRN PRN Reason: DYSPEPSIA Atorvastatin Calcium (Lipitor) 20 mg PO QHS [facility] Last Admin: 01/23/19 21:28 Dose: 20 mg Documented by: Bisacodyl (Dulcolax) 10 mg RECTAL .PRN X 1 PRN PRN Reason: Constipation Calcium Carbonate (Os-Gonzalez 500) 500 mg PO BID [facility] Last Admin: 01/24/19 07:57 Dose: Not Given Documented by: Dexamethasone (Decadron) 2 mg PO BIDCM [facility] Stop: 02/04/19 17:01 Dexamethasone (Decadron) 2 mg PO TIDCM [facility] Stop: 02/01/19 08:01 Dexamethasone (Decadron) 4 mg PO BIDCM [facility] Stop: 01/26/19 17:01 Last Admin: 01/24/19 07:54 Dose: 4 mg Documented by: Dextrose (D50w Syringe) 0 gm IV X1 PRN; Protocol PRN Reason: Hypoglycemia Glucagon () 1 mg IM .X1 PRN PRN Reason: Hypoglycemia Heparin Sodium (Porcine) (Heparin Na) 5,000 unit SC Q12 [facility] Last Admin: 01/24/19 07:54 Dose: 5,000 unit Documented by: Hydrochlorothiazide (Hctz) 25 mg PO DAILY [facility] Last Admin: 01/24/19 07:54 Dose: 25 mg Documented by: Losartan Potassium (Cozaar) 100 mg PO DAILY [facility] Last Admin: 01/24/19 07:54 Dose: 100 mg Documented by: Magnesium Hydroxide (Milk Of Magnesia) 30 ml PO .PRN X 1 PRN PRN Reason: Constipation Last Admin: 01/23/19 18:55 Dose: 30 ml Documented by: Multivitamins (Multivitamin) 1 tablet PO DAILY@0800 [facility] Last Admin: 01/24/19 07:54 Dose: 1 tablet Documented by: Nutritional Formula (Lactose Free) (Glucerna Shake) 120 ml PO 4X/DAY [facility] Last Admin: 01/24/19 07:58 Dose: Not Given Documented by: Ondansetron HCl (Zofran Odt) 4 mg PO Q6H PRN PRN PRN Reason: NAUSEA Last Admin: 01/24/19 07:58 Dose: 4 mg Documented by: Oxycodone HCl (Oxyir) 0.5 - 1 mg PO Q8H PRN PRN PRN Reason: pain Pantoprazole Sodium (Protonix) 40 mg PO BID [facility] Last Admin: 01/24/19 07:54 Dose: 40 mg Documented by: Senna/Docusate Sodium (Senokot-S, Sarai-Colace) 2 tablet PO BID [facility] Last Admin: 01/24/19 07:58 Dose: Not Given Documented by: Topiramate (Topamax) 25 mg PO BID [facility] Last Admin: 01/24/19 07:54 Dose: 25 mg Documented by: Discharge Diet: - - Regular diet Discharge Activity: May Not Drive Call your doctor if your incision/area has: Continuous Slow Oozing, Sudden Increased Bleeding, Increased Pain/ Swelling, Increased Redness, Foul Smelling Discharge, Swelling at the incision site Call your doctor if you observe: Fever of 101 or Higher, Coldness, Increased Pain, Numbness or Tingling, Change in Color, Inability to urinate, Inability to have a bowel movement, Using more than one pad per hour, Shortness of breath, Dizziness, Fainting spells, Swelling in the ankles, Chest pain, Prolonged hiccoughing, Increased palpitations (irregular heartbeat), Calf discomfort, Uncontrolled pain Home Medications: Medications to take at Discharge Hydrochlorothiazide [Hctz] 25 mg PO DAILY 02/07/13 Calcium Carbonate [Calcium] 500 mg PO BID 01/15/19 Heparin Injection (Vial) [Heparin Na] 5,000 unit SUBCUT Q12H 01/15/19 Losartan Potassium [Cozaar] 100 mg PO DAILY 01/15/19 Metformin HCl [Metformin HCl ER] 500 mg PO DAILY 01/15/19 Multivitamin [Daily Multiple Vitamin] 1 ea PO DAILY 01/15/19 Ondansetron HCl [Zofran] 4 mg PO Q8H PRN PRN 01/15/19 Topiramate [Topamax] 25 mg PO BID 01/15/19 Acetaminophen [Tylenol] 500 mg PO Q6H PRN PRN tab 01/24/19 Atorvastatin Calcium [Lipitor] 20 mg PO QHS tab 01/24/19 Glucerna Shake 120 ml PO 4X/DAY liquid 01/24/19 Pantoprazole Sodium [Protonix] 40 mg PO BID tab 01/24/19 Dexamethasone [Decadron] 2 mg PO BID #0 01/25/19 Dexamethasone [Decadron] 2 mg PO TID #0 01/25/19 Dexamethasone [Decadron] 4 mg PO BIDCM #0 01/25/19 Primary Care Physician: PIEDAD MULLINS [Other] Please follow up with your Primary Care Physician in: Follow-up with PCP in 1 to 2 weeks Please Follow Up With: Dr roman Delaney When: Follow-up with neurosurgery Dr. Roman Delaney on 01/29/2019 Disposition: Nursing Home facility Patient Condition:: Stable Rehab Course The patient is a 73 year old F with PMH HTN, HLD, DM, history of cerebellar mass status post resection admitted to [facility] on 01/15/2019 with debility secondary to normal pressure hydrocephalus status post MEDICAL STAFF SERVICES MANAGER shunt placement, for greater than 3 hours of therapy daily with a goal of returning home at or near her prior level of independence. Per documentation patient had a cerebellar mass that was resected on 11/29/2018, later patient was discharged in stable condition and readmitted on 01/01/2019 to [facility] for imbalance and intermittent nausea vomiting, diagnostic test at that time revealed hydrocephalus, a lumbar drain was placed initially at that time per documentation and patient was observed for subsequent improvement in the symptoms, she was then discharged on January 06, 2019, later patient was readmitted to [facility] on 01/07/2019 with nausea vomiting and intermittent headache along with balance issues and gait instability, per documentation patient had been confused since the prior discharge from [facility] and was not remembering to intermittent events, on 01/10/2019 patient underwent MEDICAL STAFF SERVICES MANAGER shunt placement for NPH by Dr. Roman Delaney at [facility], and per documentation patient had post craniectomy aseptic meningitis. Per patient post her cerebellar mass resection in November 2018 later she developed falls and balance issues, gait instability but denies any memory loss or urinary incontinence. At present patient denies any headache, dizziness, visual disturbances, speech disturbances, focal motor weakness, sensory loss or pain. Tolerated therapies well while in the rehab unit, had uncomplicated rehab course. Patient was sent to Dr. Roman Delaney's appointment while in the rehab and per patient her shunt was adjusted by neurosurgery repeating CT head. Patient being discharged to alf facility TCU other therapies. Patient to follow-up with Dr. Roman Delaney neurosurgery on 01/29/2019. Follow with PCP and neurosurgery as outpatient following discharge. Meaningful Use Info Meaningful Use Diagnoses (Choose all that apply): None applicable
--- NOTE | 2019-01-24 13:13 | DCINST_ITS ---
- Discharge Diagnoses Current Active Problems: Current Active and Chronic Problems (Last Updated 01/15/19 @ 20:19 by Librado De Santiago DO) Debility (Acute) HTN (hypertension) (Chronic) HLD (hyperlipidemia) (Chronic) Diabetes (Chronic) Hydrocephalus (Acute) Cerebellar mass (Chronic) S/P SLAB INSPECTOR shunt (Acute) Reason(s) for Visit for Discharge Instructions: debility secondary to normal pressure hydrocephalus status post SLAB INSPECTOR shunt placement You will use the following diet at home:: Regular Your food should be the consistency of: Regular Discharge Activity: May Not Drive Call your doctor if your incision/area has: Continuous Slow Oozing, Sudden Increased Bleeding, Increased Pain/ Swelling, Increased Redness, Foul Smelling Discharge, Swelling at the incision site Call your doctor if you observe: Fever of 101 or Higher, Coldness, Increased Pain, Numbness or Tingling, Change in Color, Inability to urinate, Inability to have a bowel movement, Using more than one pad per hour, Shortness of breath, D izziness, Fainting spells, Swelling in the ankles, Chest pain, Prolonged hiccoughing, Increased palpitations (irregular heartbeat), Calf discomfort, Uncontrolled pain Allergies/Adverse Reactions: Allergies No Known Allergies Allergy (Verified 02/07/13 18:26) Medications to take at Discharge Hydrochlorothiazide [Hctz] 25 mg PO DAILY 02/07/13 Calcium Carbonate [Calcium] 500 mg PO BID 01/15/19 Heparin Injection (Vial) [Heparin Na] 5,000 unit SUBCUT Q12H 01/15/19 Losartan Potassium [Cozaar] 100 mg PO DAILY 01/15/19 Metformin HCl [Metformin HCl ER] 500 mg PO DAILY 01/15/19 Multivitamin [Daily Multiple Vitamin] 1 ea PO DAILY 01/15/19 Ondansetron HCl [Zofran] 4 mg PO Q8H PRN PRN 01/15/19 Topiramate [Topamax] 25 mg PO BID 01/15/19 Acetaminophen [Tylenol] 500 mg PO Q6H PRN PRN tab 01/24/19 Atorvastatin Calcium [Lipitor] 20 mg PO QHS tab 01/24/19 Glucerna Shake 120 ml PO 4X/DAY liquid 01/24/19 Pantoprazole Sodium [Protonix] 40 mg PO BID tab 11/20/19 Dexamethasone [Decadron] 2 mg PO BID #0 01/25/19 Dexamethasone [Decadron] 2 mg PO TID #0 01/25/19 Dexamethasone [Decadron] 4 mg PO BIDCM #0 01/25/19 Primary Care Physician: PIEDAD MULLINS [Other] Please follow up with your Primary Care Physician in: Follow-up with PCP in 1 to 2 weeks Test Results: Test results from this visit will be discussed in further detail at your follow- up appointment, if applicable. Please Follow Up With: Dr roman Delaney When: Follow-up with neurosurgery Dr. Roman Delaney on 01/29/2019
[2019-01-24 17:16] LABS: Bedside Glucose 160 mg/dL (70-110)
[2019-01-24 19:46] VITALS: BP 107/58; PULSE 71; RESP 12; TEMP 36.5; O2SAT 95
[2019-01-24] MEDS: Atorvastatin Calcium 20 MG Tablet PO (21:07)
[2019-01-24 22:01] LABS: Bedside Glucose 188 mg/dL (70-110)
[2019-01-25 07:00] VITALS: BP 128/76; PULSE 72; RESP 16; TEMP 36.6; O2SAT 98
[2019-01-25 07:05] VITALS: BP 128/76; PULSE 72
[2019-01-25 07:05] LABS: Bedside Glucose 95 mg/dL (70-110)
[2019-01-25] MEDS: Pantoprazole Sodium 40 MG Tablet PO (07:07)
[2019-01-25] MEDS: Heparin Injection (Vial) 5,000 UNIT/ML VIAL 5000 UNIT SC (07:07)
[2019-01-25] MEDS: Topiramate 25 MG Tablet PO (07:07)
[2019-01-25] MEDS: hydroCHLOROthiazide 25 MG Tablet PO (07:08)
[2019-01-25] MEDS: Losartan Potassium 100 MG Tablet PO (07:08)
[2019-01-25] MEDS: Ondansetron ODT 4 MG Tablet PO (07:09)
[2019-01-25] MEDS: dexAMETHasone 4 MG Tablet PO (07:09)
--- NOTE | 2019-01-25 11:30 | NURSING ---
Returned from appt with daughter. Patient had left this morning at 0830.
[2019-01-25 13:05] LABS: Bedside Glucose 198 mg/dL (70-110)
--- NOTE | 2019-01-25 14:20 | NURSING ---
Discharge at this time to TCU. Report given to nurse.
== END 2019-01-25 14:22 | disposition skilled nursing facility (03) | DRG 949 ==
PROVIDERS: Internal Medicine; Student in an Organized Health Care Education/Training Program; Admitting Provider Psychiatry & Neurology Neurology; Referring Provider Psychiatry & Neurology Neurology; Visit Provider Internal Medicine
DX: Z48.811 Encounter for surgical aftercare following surgery on the nervous system (principal); G91.2 (Idiopathic) normal pressure hydrocephalus; G91.0 Communicating hydrocephalus; D32.9 Benign neoplasm of meninges, unspecified; I10 Essential (primary) hypertension; E11.9 Type 2 diabetes mellitus without complications; E78.5 Hyperlipidemia, unspecified; Z98.2 Presence of cerebrospinal fluid drainage device; Z87.891 Personal history of nicotine dependence
CPT/HCPCS: 36415; 80048; 82962; 85025; 92507; 92523; 92526; 97110; 97112; 97116; 97162; 97166; 97530; 97535; 97802; 97803

== ENCOUNTER 2019-01-25 14:29 | Inpatient (IN) | payer MEDICARE, OTHER, SELFPAY ==
[2019-01-25 14:42] VITALS: BP 111/64; PULSE 82; RESP 18; TEMP 36.6; O2SAT 97; BMI 21.2
[2019-01-25] MEDS: Heparin Injection (Vial) 5,000 UNIT/ML VIAL 5000 UNIT SC (18:00)
[2019-01-25] MEDS: Pantoprazole Sodium 40 MG Tablet PO (18:00)
[2019-01-25] MEDS: dexAMETHasone 4 MG Tablet PO (18:00)
[2019-01-25] MEDS: Topiramate 25 MG Tablet PO (18:00)
[2019-01-25 20:07] VITALS: O2SAT 98
[2019-01-25] MEDS: Atorvastatin Calcium 20 MG Tablet PO (20:39)
--- NOTE | 2019-01-25 20:53 | HP.PCM_ITS ---
Problem List (1) Cerebellar meningioma Status: Chronic (2) Normal pressure hydrocephalus Status: Chronic (3) GERD (gastroesophageal reflux disease) Status: Chronic (4) Nausea Status: Chronic (5) Seizure disorder Status: Chronic (6) Debility Status: Acute (7) HTN (hypertension) Status: Chronic (8) HLD (hyperlipidemia) Status: Chronic (9) Diabetes Status: Chronic History of Present Illness Date of Admission: 01/25/19 Chief Complaint: Here for rehabilitation, strengthening, prior to discharge home alone. The patient is a 73 year old Female with below past medical history with followin11/29/2018 Cerebellar meningioma resection. 01/01/2019 Admitted to [facility] with NPH, lumbar drain placed, discharged home. 01/10/2019 SEAMLESS TUBE DRAWER shunt placed for NPH by Dr. Megan Delaney. complicated by post craniectomy aseptic meningitis. 01/15/2019 Admitted to Inpatient Rehabilitation Unit for therapy. Dr. Delaney adjusted SEAMLESS TUBE DRAWER shunt. 01/25/2019 Admitted to TCU with debility, here for rehabilitation, strengthening, prior to discharge home alone. 01/29/[address] Megan Delaney as outpatient. Past Medical History Past Medical History (Chronic Problems): Chronic Problems (Last Updated 01/15/19 @ 20:19 by Librado De Santiago DO) HTN (hypertension) (Chronic) HLD (hyperlipidemia) (Chronic) Diabetes (Chronic) Cerebellar mass (Chronic) Cerebellar meningioma (Chronic) Normal pressure hydrocephalus (Chronic) GERD (gastroesophageal reflux disease) (Chronic) Nausea (Chronic) Seizure disorder (Chronic) Medical History: Medical History (Last Updated 01/15/19 @ 20:19 by Librado De Santiago DO) Hyperlipidemia E78.5 Normal pressure hydrocephalus G91.2 HTN (hypertension) I10 Allergies No Known Allergies Allergy (Verified 02/07/13 18:26) Home Medications: Ambulatory Orders Medication Instructions Recorded Hydrochlorothiazide [Hctz] 25 mg PO DAILY 02/07/13 Calcium Carbonate [Calcium] 500 mg PO BID 01/15/19 Heparin Injection (Vial) [Heparin 5,000 unit SUBCUT Q12H 01/15/19 Na] Losartan Potassium [Cozaar] 100 mg PO DAILY 01/15/19 Metformin HCl [Metformin HCl ER] 500 mg PO DAILY 01/15/19 Multivitamin [Daily Multiple 1 ea PO DAILY 01/15/19 Vitamin] Ondansetron HCl [Zofran] 4 mg PO Q8H PRN PRN 01/15/19 Topiramate [Topamax] 25 mg PO BID 01/15/19 Acetaminophen [Tylenol] 500 mg PO Q6H PRN PRN tab 01/24/19 Atorvastatin Calcium [Lipitor] 20 mg PO QHS 01/25/19 Dexamethasone [Decadron] 2 mg PO BID 01/25/19 Dexamethasone [Decadron] 2 mg PO TID 01/25/19 Dexamethasone [Decadron] 4 mg PO BIDCM 01/25/19 Glucerna Shake 120 ml PO 4X/DAY 01/25/19 Pantoprazole Sodium [Protonix] 40 mg PO BID 01/25/19 Surgical History: Surgical History (Last Updated 01/15/19 @ 20:19 by Librado De Santiago DO) S/P SEAMLESS TUBE DRAWER shunt Z98.2 S/P hip replacement Z96.649 S/P resection of meningioma Z98.890, Z86.018 Surgical History: total hip arthroplasty, - - cerebellar meningioma resection, SEAMLESS TUBE DRAWER shunt placement. 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 Denies: Chills, Fever, Weight Change HEENT: Denies: Head Aches, Sinus Congestion, Sinus Drainage Cardiovascular: Denies: Chest Pain, Palpitations Respiratory: Denies: Cough, Shortness of breath at rest, Sputum production Gastrointestinal: Denies: Abdominal Pain, Nausea, Vomiting Genitourinary: Denies: Dysuria Musculoskeletal: Denies: Joint Pain, Joint Tenderness Skin: Denies: Rash, Wounds Neurological: Denies: Numbness, Tingling, Focal weakness Psychiatric: Denies: Anxiety, Depression, Homicidal Ideations, Suicidal Ideations Hematologic/ Lymphatic: Denies: Easy Bruising, Easy Bleeding VTE Information - Inpt Only VTE Present on Admission: No VTE Mechan Device Prophylaxis: Knee High AIMEE Hose VTE Pharm Prophylaxis ordered?: Yes - Physical Exam Vitals/I&O's: Vital Signs Temp Pulse Resp BP Pulse Ox 97.9 F 82 18 111/64 98 01/25/19 14:42 01/25/19 14:42 01/25/19 14:42 01/25/19 14:42 01/25/19 20:07 Oxygen Delivery Method Room Air Weight: 57.833 kg Body Mass Index (BMI) 21.2 General: Alert, Oriented x3, Cooperative HEENT: Atraumatic, PERRLA, EOMI, Normocephalic, - - SEAMLESS TUBE DRAWER shunt palpable right crown. Neck: Supple, No JVD, Negative Carotid Bruits Lungs: Clear to auscultation, Normal air movement Cardiovascular: Regular rate, No murmurs Abdomen: Bowel Sounds Present, Soft, Non Tender Extremities: No edema, Capillary Refill Less than 3 Seconds Skin: No rashes, No breakdown Musculoskeletal: No Tenderness to Palpation of Joints or Extremities Neurological: Cranial nerves II-XII grossly intact Psych/Mental Status: Normal Affect, Appropriate Current Medications Acetaminophen (Tylenol) 500 mg PO Q6H PRN PRN PRN Reason: HEADACHE Atorvastatin Calcium (Lipitor) 20 mg PO QHS [facility] Last Admin: 01/25/19 20:39 Dose: 20 mg Documented by: Calcium Carbonate ([facility]Gonzalez 500) [facility] Last Admin: 01/25/19 17:58 Dose: Not Given Documented by: Dexamethasone (Decadron) 4 mg PO BIDCM [facility] Stop: 01/26/19 17:01 Last Admin: 01/25/19 18:00 Dose: 4 mg Documented by: Dexamethasone (Decadron) 2 mg PO TIDCM [facility] Stop: 01/31/19 17:46 [facility]) [facility] Stop: 02/03/19 17:01 Heparin Sodium (Porcine) (Heparin Na) 5,000 unit SC Q12 [facility] Last Admin: 01/25/19 18:00 Dose: 5,000 unit Documented by: Hydrochlorothiazide (Hctz) 25 mg PO DAILY [facility] Losartan Potassium (Cozaar) 100 mg PO DAILY [facility] Metformin HCl (Glucophage Xr) 500 mg PO DAILY@0800 [facility] Multi-Ingredient Cream (Eucerin) 1 applic TOPICAL QHS [facility]; Protocol Multivitamins (Multivitamin) 1 tablet PO DAILY@0800 [facility] Ondansetron HCl (Zofran Odt) 4 mg PO Q8H PRN PRN Reason: NAUSEA/VOMITING Pantoprazole Sodium (Protonix) 40 mg PO BID [facility] Last Admin: 01/25/19 18:00 Dose: 40 mg Documented by: Topiramate (Topamax) 25 mg PO BID [facility] Last Admin: 01/25/19 18:00 Dose: 25 mg Documented by: Tuberculin PPD (Tubersol, Aplisol, Ppd) 5 tu ID X1 ONE Stop: 01/26/19 10:01 Tuberculin PPD (Tubersol, Aplisol, Ppd) 5 tu ID X1 ONE Stop: 02/02/19 10:01 Assessment/Plan All Active Problems (Last Updated 01/15/19 @ 20:19 by Librado De Santiago, ) Debility (Acute) Hydrocephalus (Acute) S/P SEAMLESS TUBE DRAWER shunt (Acute) 73 year old female with below past medical history status post cerebellar meningioma resection, complicated by NPH requiring SEAMLESS TUBE DRAWER shunt placement, admitted to Inpatient Rehabilitation Unit, transferred to TCU with debility, here for rehabilitation, strengthening, prior to discharge home alone. * Debility - PT/OT. * Cognition - ST. * Pain - Tylenol 1000MG Q6H PRN pain (1-10) * Bowel - Miralax 17GM daily, Senna/colace 1 tablet BID, Dulcolax 10MG daily PRN. * Adult immunization - Administer Prevnar 13, Pneumovax 23, Fluzone as necessary. * DVT prophylaxis - Lovenox 40MG SC daily. * Hyperlipidemia - Atorvastatin 20MG daily. * Calcium deficiency - Calcium 500MG BID. * Cerebellar meningioma status post resection - Decadron 2MG TIDCM thru 01/31/2019, 2MG BIDCM thru 02/03/2019. * Seizure prophylaxis - Topamax 25MG BID. * NPH status post SEAMLESS TUBE DRAWER shunt - follow up with Dr. Megan Delaney 01/29/2019. * Hypertension - Losartan 100MG daily, HCTZ 25MG daily. * Diabetes Mellitus II - Metformin XR 500MG daily, monitor blood sugars. * Skin irritation - Eucerin QHS. * Nutrition - MVI daily. * Nausea - Zofran 4MG Q8H PRN. * GERD - Pantoprazole 40MG BID.
--- NOTE | 2019-01-25 21:36 | NURSING ---
Pt requesting all 0600 meds be changed to 0800. Pt does not like to take meds on an empty stomach and d/t recent hx with nausea she is trying to avoid all possible ways that nausea may happen.
[2019-01-25 21:46] LABS: Bedside Glucose 221 mg/dL (70-110)
[2019-01-26] MEDS: Enoxaparin 40 MG/0.4 ML Syringe SC (05:29)
[2019-01-26 05:49] LABS: Basophil# 0.01 X10^3/uL; Basophil% 0.1 % (0-1); Eosinophil# 0.03 X10^3/uL; Eosinophils% 0.3 % (0-5); Hematocrit 35.8 % (37-47); Hemoglobin 11.9 g/dL (12.0-15.0); Mean Corp Hgb Conc 33.2 g/dL (32-36); Mean Corpuscular Hgb 28.8 pg (27.0-32.0); Mean Corpuscular Volume 86.7 fL (81-99); Mean Platelet Vol. 8.9 fl (6.2-12.0); Monocyte# 0.79 X10^3/uL; Monocyte% 6.9 % (0-10); NRBC Flagged by Analyzer 0 % (0-5); Neutrophil # 9.01 X10^3/uL (2.7-7.7); Neutrophil % 78.1 % (47-70); Platelet Count 227 K/mm3 (150-450); RBC Distribution Width CV 14.3 % (11.6-14.6); RBC Distribution Width SD 45.7 fl (35.1-43.9); Red Blood Count 4.13 M/mm3 (4.2-5.4); White Blood Count 11.5 K/mm3 (4.4-11.0)
[2019-01-26 06:10] LABS: Anion Gap 8 (5-15); BUN 23 mg/dL (7-18); BUN/Creat Ratio 35.8 RATIO (10-20); Calcium,Total 9.2 mg/dL (8.5-10.1); Chloride 101 mmol/L (98-107); Creatinine, Serum 0.64 mg/dL (0.55-1.02); EST Glomerular Filtration Rate 96 mL/min (>60); Est Glom Filt Rate - Afr Amer 116 mL/min (>60); Estimated Creatinine Clearance 45.09 ml/min; Glucose 147 mg/dL (74-106); Potassium 3.6 mmol/L (3.5-5.1); Sodium Level 136 mmol/L (136-145)
[2019-01-26 06:31] LABS: Bedside Glucose 111 mg/dL (70-110)
[2019-01-26] MEDS: Pantoprazole Sodium 40 MG Tablet PO ×2 (08:30→17:02)
[2019-01-26] MEDS: Topiramate 25 MG Tablet PO ×2 (08:31→20:05)
[2019-01-26] MEDS: Senna/Docusate Sodium 1 Tablet PO ×2 (08:31→17:02)
[2019-01-26] MEDS: hydroCHLOROthiazide 25 MG Tablet PO (08:33)
[2019-01-26] MEDS: dexAMETHasone 4 MG Tablet PO ×2 (08:36→17:02)
[2019-01-26] MEDS: Losartan Potassium 100 MG Tablet PO (08:36)
[2019-01-26] MEDS: metFORMIN (XR) 500 MG Tablet PO (08:38)
[2019-01-26] MEDS: Tuberculin,Purif.prot.deriv. 50 TU/ML Vial 5 ML ID (11:07)
--- NOTE | 2019-01-26 14:57 | PCM.PN.RX ---
<Arielle Mccarthy - Last Filed: 01/26/19 14:57> Progress Note - Pharmacy Subjective: TCU Admission Objective: Allergies cefepime Allergy (Verified 01/26/19 13:25) Anaphylaxis Current Medications Generic Name Dose Route Start Last Admin Trade Name Freq PRN Reason Stop Dose Admin Acetaminophen 1,000 mg 01/25/19 21:11 Tylenol PO Q6H PRN PRN Pain Score 1-1010 Atorvastatin Calcium 20 mg 01/25/19 22:00 01/25/19 20:39 Lipitor PO 20 mg QHS [facility] Administration Bisacodyl 10 mg 01/25/19 21:11 Dulcolax PO DAILY PRN Constipation Dexamethasone 4 mg 01/25/19 17:00 01/26/19 08:36 Decadron PO 01/26/19 17:01 4 mg BIDCM [facility] Administration Dexamethasone 2 mg 01/27/19 07:45 Decadron PO 01/31/19 17:46 TIDCM [facility] Dexamethasone 2 mg 02/01/19 08:00 Decadron PO 02/03/19 17:01 BIDCM [facility] Enoxaparin Sodium 40 mg 01/26/19 06:00 01/26/19 05:29 Lovenox SC 40 mg DAILY@0600 [facility] Administration Hydrochlorothiazide 25 mg 01/26/19 08:00 01/26/19 08:33 Hctz PO 25 mg DAILY@0800 [facility] Administration Losartan Potassium 100 mg 01/26/19 08:00 01/26/19 08:36 Cozaar PO 100 mg DAILY@0800 [facility] Administration Metformin HCl 500 mg 01/26/19 08:00 01/26/19 08:38 Glucophage Xr PO 500 mg DAILY@0800 [facility] Administration Multi-Ingredient Cream 1 applic 01/26/19 22:00 Eucerin TOPICAL QHS [facility] Protocol Ondansetron HCl 4 mg 01/25/19 15:41 Zofran Odt PO Q8H PRN NAUSEA/VOMITING Pantoprazole Sodium 40 mg 01/26/19 08:00 01/26/19 08:30 Protonix PO 40 mg 0800,1800 [facility] Administration Senna/Docusate Sodium 1 tablet 01/26/19 08:00 01/26/19 08:31 Senokot-S, Sarai-Colace PO 1 tablet 0800,1800 [facility] Administration Topiramate 25 mg 01/26/19 08:00 01/26/19 08:31 Topamax PO 25 mg 0800,1999 [facility] Administration Tuberculin PPD 5 tu 02/02/19 10:00 Tubersol, Aplisol, Ppd ID 02/02/19 10:01 X1 ONE Problem List (Last Updated 01/15/19 @ 20:19 by Librado De Santiago DO) Cerebellar meningioma (Chronic) Normal pressure hydrocephalus (Chronic) GERD (gastroesophageal reflux disease) (Chronic) Nausea (Chronic) Seizure disorder (Chronic) Vital Signs Temp Pulse Resp BP Pulse Ox 97.9 F 82 18 111/64 98 01/25/19 14:42 01/25/19 14:42 01/25/19 14:42 01/25/19 14:42 01/25/19 20:07 Oxygen Delivery Method Room Air Weight: 57.833 kg Body Mass Index (BMI) 21.2 Sodium 136 mmol/L (136-145) 01/26/19 05:25 Potassium 3.6 mmol/L (3.5-5.1) 01/26/19 05:25 Chloride 101 mmol/L (98-107) 01/26/19 05:25 Carbon Dioxide 27.0 mmol/L (21.0-32.0) 01/26/19 05:25 Anion Gap 8 (5-15) 01/26/19 05:25 BUN 23 mg/dL (7-18) H 01/26/19 05:25 Creatinine 0.64 mg/dL (0.55-1.02) 01/26/19 05:25 Est GFR (MDRD) Af Amer 116 mL/min (>60) 01/26/19 05:25 Est GFR (MDRD) Non-Af 96 mL/min (>60) 01/26/19 05:25 BUN/Creatinine Ratio 35.8 RATIO (10-20) H 01/26/19 05:25 Glucose 147 mg/dL (74-106) H 01/26/19 05:25 Assessment/Plan: 1. Pain: acetaminophen 1000mg PO Q6H PRN pain (-12/14). Please continue to monitor for pain and PRN usage. 2. Cerebellar meningioma s/p resection: dexamethasone 4mg PO BIDCM (thru 01/26/19), then dexamethasone 2mg PO TIDCM (01/27/19 - 01/31/19), then dexamethasone 2mg PO BIDCM (02/01/19 - 02/02/19). Please continue to monitor increased glucose, upset stomach and increased WBCs. 3. DVT prophylaxis: enoxaparin 40mg SC daily. Please continue to monitor for S/S of bleeding, platelets and renal function. *4. Hyperlipidemia: atorvastatin 20mg PO QHS. I did not see a lipid panel or LFTs in patient's chart. Please consider ordering one now and then annually as clinically appropriate. Please continue to monitor for muscle pain. 5. Seizure prophylaxis: topiramate 25mg PO BID. Please continue to monitor for seizures. 6. Hypertension: hydrochlorothiazide 25mg PO daily and losartan 100mg PO daily. Please continue to monitor blood pressure, electrolytes and renal function. *7. Type II diabetes mellitus: metformin XR 500mg PO daily. I did not see an A1c in the patient's chart. Please consider ordering one now and then annually as clinically appropriate. Please continue to monitor renal function and blood glucose. 8. GERD: pantoprazole 40mg BID. Please continue to monitor for GERD. 9. Nausea: ondansetron 4mg PO Q8H PRN nausea. Please continue to monitor for nausea and PRN usage. Psychotropic Medications: None Unnecessary Medications: None Bowel Regimen: senna/docusate 1T PO BID and bisacodyl 10mg PO daily PRN constipation. Please continue to monitor for constipation and PRN usage. Date of Note:: 01/26/19 - Provider Comments Provider responsibility: Provider responsible to enter orders to implement recommendations <Josh Hernandez Chi - Last Filed: 01/26/19 16:59> Progress Note - Pharmacy Subjective: [] Objective: Allergies cefepime Allergy (Verified 01/26/19 13:25) Anaphylaxis Current Medications Generic Name Dose Route Start Last Admin Trade Name Freq PRN Reason Stop Dose Admin Acetaminophen 1,000 mg 01/25/19 21:11 Tylenol PO Q6H PRN PRN Pain Score 1-1010 Atorvastatin Calcium 20 mg 01/25/19 22:00 01/25/19 20:39 Lipitor PO 20 mg QHS [facility] Administration Bisacodyl 10 mg 01/25/19 21:11 Dulcolax PO DAILY PRN Constipation Dexamethasone 4 mg 01/25/19 17:00 01/26/19 08:36 Decadron PO 01/26/19 17:01 4 mg BIDCM [facility] Administration Dexamethasone 2 mg 01/27/19 07:45 Decadron PO 01/31/19 17:46 TIDCM [facility] Dexamethasone 2 mg 02/01/19 08:00 Decadron PO 02/03/19 17:01 BIDCM [facility] Enoxaparin Sodium 40 mg 01/26/19 06:00 01/26/19 05:29 Lovenox SC 40 mg DAILY@0600 [facility] Administration Hydrochlorothiazide 25 mg 01/26/19 08:00 01/26/19 08:33 Hctz PO 25 mg DAILY@0800 [facility] Administration Losartan Potassium 100 mg 01/26/19 08:00 01/26/19 08:36 Cozaar PO 100 mg DAILY@0800 [facility] Administration Metformin HCl 500 mg 01/26/19 08:00 01/26/19 08:38 Glucophage Xr PO 500 mg DAILY@0800 [facility] Administration Multi-Ingredient Cream 1 applic 01/26/19 22:00 Eucerin TOPICAL QHS [facility] Protocol Ondansetron HCl 4 mg 01/25/19 15:41 Zofran Odt PO Q8H PRN NAUSEA/VOMITING Pantoprazole Sodium 40 mg 01/26/19 08:00 01/26/19 08:30 Protonix PO 40 mg 0800,1800 [facility] Administration Senna/Docusate Sodium 1 tablet 01/26/19 08:00 01/26/19 08:31 Senokot-S, Sarai-Colace PO 1 tablet 0800,1800 [facility] Administration Topiramate 25 mg 01/26/19 08:00 01/26/19 08:31 Topamax PO 25 mg 0800,2000 [facility] Administration Tuberculin PPD 5 tu 02/02/19 10:00 Tubersol, Aplisol, Ppd ID 02/02/19 10:01 X1 ONE Problem List (Last Updated 01/15/19 @ 20:19 by Librado De Santiago DO) Cerebellar meningioma (Chronic) Normal pressure hydrocephalus (Chronic) GERD (gastroesophageal reflux disease) (Chronic) Nausea (Chronic) Seizure disorder (Chronic) Vital Signs Temp Pulse Resp BP Pulse Ox 97.6 F L 80 17 111/64 97 01/26/19 15:09 01/26/19 15:09 01/26/19 15:09 01/26/19 15:09 01/26/19 15:09 Oxygen Delivery Method Room Air Weight: 57.833 kg Body Mass Index (BMI) 21.2 Sodium 136 mmol/L (136-145) 01/26/19 05:25 Potassium 3.6 mmol/L (3.5-5.1) 01/26/19 05:25 Chloride 101 mmol/L (98-107) 01/26/19 05:25 Carbon Dioxide 27.0 mmol/L (21.0-32.0) 01/26/19 05:25 Anion Gap 8 (5-15) 01/26/19 05:25 BUN 23 mg/dL (7-18) H 01/26/19 05:25 Creatinine 0.64 mg/dL (0.55-1.02) 01/26/19 05:25 Est GFR (MDRD) Af Amer 116 mL/min (>60) 01/26/19 05:25 Est GFR (MDRD) Non-Af 96 mL/min (>60) 01/26/19 05:25 BUN/Creatinine Ratio 35.8 RATIO (10-20) H 01/26/19 05:25 Glucose 147 mg/dL (74-106) H 01/26/19 05:25 Assessment/Plan: Psychotropic Medications: Unnecessary Medications: Bowel Regimen: - Provider Comments Provider responsibility: Provider responsible to enter orders to implement recommendations Provider Comments to Recommendations by Pharmacy: Agree
[2019-01-26 15:09] VITALS: BP 111/64; PULSE 80; RESP 17; TEMP 36.4; O2SAT 97
[2019-01-26] MEDS: Ondansetron ODT 4 MG Tablet PO (20:05)
[2019-01-26] MEDS: Atorvastatin Calcium 20 MG Tablet PO (20:05)
[2019-01-27] MEDS: Enoxaparin 40 MG/0.4 ML Syringe SC (04:54)
[2019-01-27 06:31] LABS: Bedside Glucose 102 mg/dL (70-110)
[2019-01-27] MEDS: Pantoprazole Sodium 40 MG Tablet PO ×2 (08:17→17:36)
[2019-01-27] MEDS: Senna/Docusate Sodium 1 Tablet PO ×2 (08:17→17:36)
[2019-01-27] MEDS: metFORMIN (XR) 500 MG Tablet PO (08:17)
[2019-01-27] MEDS: dexAMETHasone 4 MG Tablet 2 MG PO ×3 (08:17→17:35)
[2019-01-27] MEDS: Topiramate 25 MG Tablet PO ×2 (08:17→20:06)
[2019-01-27] MEDS: hydroCHLOROthiazide 25 MG Tablet PO (08:17)
[2019-01-27] MEDS: Losartan Potassium 100 MG Tablet PO (08:17)
[2019-01-27 16:00] VITALS: BP 104/56; PULSE 72; RESP 17; TEMP 37.1; O2SAT 95
[2019-01-27] MEDS: Atorvastatin Calcium 20 MG Tablet PO (20:06)
[2019-01-28] MEDS: Enoxaparin 40 MG/0.4 ML Syringe SC (04:43)
[2019-01-28 06:30] LABS: Bedside Glucose 98 mg/dL (70-110)
[2019-01-28 08:06] VITALS: BP 136/93; PULSE 66
[2019-01-28] MEDS: dexAMETHasone 4 MG Tablet 2 MG PO ×3 (08:07→16:49)
[2019-01-28] MEDS: Topiramate 25 MG Tablet PO ×2 (08:08→20:03)
[2019-01-28] MEDS: metFORMIN (XR) 500 MG Tablet PO (08:08)
[2019-01-28] MEDS: Senna/Docusate Sodium 1 Tablet PO (08:08)
[2019-01-28] MEDS: Losartan Potassium 100 MG Tablet PO (08:08)
[2019-01-28] MEDS: Pantoprazole Sodium 40 MG Tablet PO ×2 (08:09→16:48)
[2019-01-28] MEDS: hydroCHLOROthiazide 25 MG Tablet PO (08:09)
[2019-01-28 15:33] VITALS: BP 107/59; PULSE 55; RESP 18; TEMP 36.3; O2SAT 100
[2019-01-28] MEDS: Atorvastatin Calcium 20 MG Tablet PO (20:03)
[2019-01-29] MEDS: Enoxaparin 40 MG/0.4 ML Syringe SC (05:23)
[2019-01-29 06:36] LABS: Bedside Glucose 102 mg/dL (70-110)
[2019-01-29] MEDS: metFORMIN (XR) 500 MG Tablet PO (08:08)
[2019-01-29] MEDS: Topiramate 25 MG Tablet PO ×2 (08:08→20:02)
[2019-01-29] MEDS: Pantoprazole Sodium 40 MG Tablet PO ×2 (08:08→17:39)
[2019-01-29] MEDS: hydroCHLOROthiazide 25 MG Tablet PO (08:08)
[2019-01-29] MEDS: dexAMETHasone 4 MG Tablet 2 MG PO ×3 (08:08→17:38)
[2019-01-29] MEDS: Losartan Potassium 100 MG Tablet PO (08:08)
[2019-01-29] MEDS: Ondansetron ODT 4 MG Tablet PO (10:05)
--- NOTE | 2019-01-29 13:35 | NURSING ---
pt back from Dr. Delanye appt. no new orders, per daughter, shunt moved to the next step, and f/u appt scheduled for @8222
[2019-01-29 15:46] VITALS: BP 95/57; PULSE 74; RESP 17; TEMP 36.3; O2SAT 94
[2019-01-29] MEDS: Atorvastatin Calcium 20 MG Tablet PO (20:01)
[2019-01-30] MEDS: Enoxaparin 40 MG/0.4 ML Syringe SC (06:24)
[2019-01-30 06:30] LABS: Bedside Glucose 115 mg/dL (70-110)
[2019-01-30] MEDS: Losartan Potassium 100 MG Tablet PO (08:28)
[2019-01-30] MEDS: metFORMIN (XR) 500 MG Tablet PO (08:28)
[2019-01-30] MEDS: hydroCHLOROthiazide 25 MG Tablet PO (08:28)
[2019-01-30] MEDS: dexAMETHasone 4 MG Tablet 2 MG PO ×3 (08:28→17:32)
[2019-01-30] MEDS: Topiramate 25 MG Tablet PO ×2 (08:28→20:31)
[2019-01-30] MEDS: Senna/Docusate Sodium 1 Tablet PO ×2 (08:28→17:31)
[2019-01-30] MEDS: Pantoprazole Sodium 40 MG Tablet PO ×2 (08:28→17:31)
[2019-01-30 08:31] VITALS: BP 114/70; PULSE 76
[2019-01-30] MEDS: Acetaminophen 500 MG Tablet 1000 MG PO (13:36)
[2019-01-30 15:50] VITALS: BP 86/45; PULSE 70; RESP 16; TEMP 36.6; O2SAT 100
--- NOTE | 2019-01-30 18:03 | NURSING ---
pt BP low at times, Dr Hernandez reviewed, new orders DC cozaar & HCTZ
--- NOTE | 2019-01-30 19:05 | NURSING ---
pt with lg amt of emesis this evening. denied nausea. 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
[2019-01-30 20:27] VITALS: BP 115/74; PULSE 77; RESP 18; TEMP 2.7; TEMP 36.8; O2SAT 94
[2019-01-30] MEDS: Atorvastatin Calcium 20 MG Tablet PO (20:31)
[2019-01-31] MEDS: Enoxaparin 40 MG/0.4 ML Syringe SC (04:52)
[2019-01-31] MEDS: Acetaminophen 500 MG Tablet 1000 MG PO (04:56)
[2019-01-31] MEDS: Ondansetron ODT 4 MG Tablet PO ×2 (05:02→16:19)
[2019-01-31 06:26] LABS: Bedside Glucose 92 mg/dL (70-110)
--- NOTE | 2019-01-31 07:40 | MDS.RN ---
Pain interview for valencia 02/01/19 completed.l
[2019-01-31] MEDS: metFORMIN (XR) 500 MG Tablet PO (08:47)
[2019-01-31] MEDS: Topiramate 25 MG Tablet PO ×2 (08:47→20:22)
[2019-01-31] MEDS: Senna/Docusate Sodium 1 Tablet PO (08:47)
[2019-01-31] MEDS: dexAMETHasone 4 MG Tablet 2 MG PO ×3 (08:47→18:51)
[2019-01-31] MEDS: Pantoprazole Sodium 40 MG Tablet PO ×2 (08:47→18:51)
--- NOTE | 2019-01-31 14:37 | CASEMGMT ---
Addendum entered by Gabby Holbrook 01/31/19 16:43: Pt requesting to restart services with [facility] PT/OT/SN, then transition to outpatient. Addendum entered by Gabby Holbrook 01/31/19 16:19: Pt and dtr requesting to DC home 02/06. Original Note: Social Work IDT met with patient and daughter for care plan meeting. Discussed patient's progress in therapy. Pt is independent with bed mobility, set up/supervision for transfers and all ADLs, just requiring some cues with tasks, SBA walking 250 ft with FWW or CGA 100 ft w/o device, completing 5 steps CGA and 10 mins on bike. Pt still struggling with nausea and vomiting - f/u appt with physician 02/08. ST working on memory and word finding, and does well with extra time and double checking work. Explained Medicare benefit. Will continue to follow for DC plans. JOAN TrevizoW
[2019-01-31 15:16] VITALS: BP 109/65; PULSE 74; RESP 17; TEMP 36.8; O2SAT 94
--- NOTE | 2019-01-31 15:51 | CASEMGMT ---
Social Work BIMS and PHQ-9 completed for MDS assessment. Gabby Holbrook, CAREER RESOURCE TECHNICIAN [employer]
--- NOTE | 2019-01-31 16:48 | DCINST_ITS ---
- Discharge Diagnoses Current Active Problems: Current Active and Chronic Problems (Last Updated 01/15/19 @ 20:19 by Librado De Santiago DO) Cerebellar meningioma (Chronic) Normal pressure hydrocephalus (Chronic) GERD (gastroesophageal reflux disease) (Chronic) Nausea (Chronic) Seizure disorder (Chronic) You will use the following diet at home:: No restrictions, Regular Your food should be the consistency of: Regular Your liquids should be the consistency of: Regular/Thin Discharge Activity: Return to Normal Activity, May Shower, Use Walker Weight Bearing Status: Weight bearing as tolerated Call your doctor if you observe: Fever of 101 or Higher, Inability to urinate, Inability to have a bowel movement, Shortness of breath, Chest pain, Uncontrolled pain Allergies/Adverse Reactions: Allergies cefepime Allergy (Verified 01/26/19 13:25) Anaphylaxis Medications to take at Discharge Dexamethasone [Decadron] 4 mg PO BIDCM 01/25/19 Acetaminophen [Tylenol] 1,000 mg PO Q6H PRN PRN tab 01/31/19 Atorvastatin Calcium [Lipitor] 20 mg PO QHS #30 tab 01/31/19 Dexamethasone [Decadron] 2 mg PO BID #60 tab 01/31/19 Metformin HCl [Metformin HCl ER] 500 mg PO DAILY #30 tab.er.24h 01/31/19 Mineral Oil/Petrolatum,White [Eucerin] 1 applic TOPICAL QHS jar 01/31/19 Ondansetron HCl [Zofran] 4 mg PO Q8H PRN PRN #90 tab 01/31/19 Pantoprazole Sodium [Protonix] 40 mg PO BID #60 tab 01/31/19 Topiramate [Topamax] 25 mg PO BID #60 tab 01/31/19 The following prescriptions were given: Dexamethasone [Decadron] 2 mg PO BID #60 tab Prescription Printed Atorvastatin Calcium [Lipitor] 20 mg PO QHS #30 tab Prescription Printed Metformin HCl [Metformin HCl ER] 500 mg PO DAILY #30 tab.er.24h Prescription Printed Pantoprazole Sodium [Protonix] 40 mg PO BID #60 tab Prescription Printed Topiramate [Topamax] 25 mg PO BID #60 tab Prescription Printed Ondansetron HCl [Zofran] 4 mg PO Q8H PRN PRN #90 tab PRN Reason: Nausea Prescription Printed Primary Care Physician: Babatunde Barron [Primary Care Provider] - Please follow up with your Primary Care Physician in: 1 week. Test Results: Test results from this visit will be discussed in further detail at your follow- up appointment, if applicable. Please Follow Up With: Megan Delaney MD When: 2 weeks. Proposed Discharge Date: 02/06/19
--- NOTE | 2019-01-31 16:50 | PCM.DC.SUM ---
Discharge Date and Diagnosis Date of Admission: 01/25/19 Date of Discharge: 02/06/19 - Secondary Discharge Diagnosis Chronic Problems (Last Updated 01/15/19 @ 20:19 by Librado De Santiago DO) HTN (hypertension) (Chronic) HLD (hyperlipidemia) (Chronic) Diabetes (Chronic) Cerebellar mass (Chronic) Cerebellar meningioma (Chronic) Normal pressure hydrocephalus (Chronic) GERD (gastroesophageal reflux disease) (Chronic) Nausea (Chronic) Seizure disorder (Chronic) Hospital Course and Treatment Imaging Results: 01/25/19 14:57 Diet: Regular Diet Labs (Last 48 Hours) 01/30/19 01/31/19 06:17 06:18 POC Glucose 115 H 92 Operations: None Procedures: None Summary of Care Provided: The patient is a 73 year old Female with below past medical history status post cerebellar meningioma resection, complicated by NPH requiring LENS INSPECTOR shunt placement, admitted to Inpatient Rehabilitation Unit, transferred to TCU with debility, here for rehabilitation, strengthening, prior to discharge home alone. Discharge home alone, [facility] PT/OT/SN. - Physical Exam Vitals/I&O's: Vital Signs Temp Pulse Resp BP Pulse Ox 98.2 F 74 17 109/65 94 01/31/19 15:16 01/31/19 15:16 01/31/19 15:16 01/31/19 15:16 01/31/19 15:16 Oxygen Delivery Method Room Air Weight: 58.967 kg Body Mass Index (BMI) 21.2 Intake and Output for Last 24 Hours 01/29/19 01/30/19 01/31/19 23:59 23:59 23:59 Intake Total 240 / 240 840 / 840 360 / 360 Balance 240 / 240 840 / 840 360 / 360 Laboratory Results 01/31/19 06:18: POC Glucose 92 Current Medications Acetaminophen (Tylenol) 1,000 mg PO Q6H PRN PRN PRN Reason: Pain Score 1-10/10 Last Admin: 01/31/19 04:56 Dose: 1,000 mg Documented by: Atorvastatin Calcium (Lipitor) 20 mg PO QHS [facility] Last Admin: 01/30/19 20:31 Dose: 20 mg Documented by: Bisacodyl (Dulcolax) 10 mg PO DAILY PRN PRN Reason: Constipation Dexamethasone (Decadron) 2 mg PO TIDCM [facility] Stop: 01/31/19 17:46 Last Admin: 01/31/19 12:09 Dose: 2 mg Documented by: [facility]adron) [facility] [address] [facility] Stop: 02/03/19 17:01 Enoxaparin Sodium (Lovenox) 40 mg SC DAILY@0600 [facility] Last Admin: 01/31/19 04:52 Dose: 40 mg Documented by: Metformin HCl (Glucophage Xr) 500 mg PO DAILY@0800 [facility] Last Admin: 01/31/19 08:47 Dose: 500 mg Documented by: Multi-Ingredient Cream (Eucerin) 1 applic TOPICAL QHS [facility]; Protocol Last Admin: 01/30/19 20:30 Dose: 1 applicatio Documented by: Ondansetron HCl (Zofran Odt) 4 mg PO Q8H PRN PRN Reason: NAUSEA/VOMITING Last Admin: 01/31/19 16:19 Dose: 4 mg Documented by: Pantoprazole Sodium (Protonix) 40 mg PO 0800,1800 [facility] Last Admin: 01/31/19 08:47 Dose: 40 mg Documented by: Senna/Docusate Sodium (Senokot-S, Sarai-Colace) 1 tablet PO 0800,1800 [facility] Last Admin: 01/31/19 08:47 Dose: 1 tablet Documented by: Topiramate (Topamax) 25 mg PO 0800,2000 [facility] Last Admin: 01/31/19 08:47 Dose: 25 mg Documented by: Tuberculin PPD (Tubersol, Aplisol, Ppd) 5 tu ID [id number] Stop: 02/02/19 10:01 Discharge Diet: No Restrictions Discharge Activity: Return to Normal Activity, May Shower, Use Walker Weight Bearing Status: Weight bearing as tolerated Call your doctor if you observe: Fever of 101 or Higher, Inability to urinate, Inability to have a bowel movement, Shortness of breath, Chest pain, Uncontrolled pain Home Medications: Medications to take at Discharge RX: Dexamethasone [Decadron] 4 mg PO BID 01/25/19 RX: Acetaminophen [Tylenol] 1,000 mg PO Q6H PRN PRN tab 01/31/19 RX: Atorvastatin Calcium [Lipitor] 20 mg PO QHS #30 tab 01/31/19 RX: Dexamethasone [Decadron] 2 mg PO BID #60 tab 11/27/19 RX: Metformin HCl [Metformin HCl ER] 500 mg PO DAILY #30 tab.er.24h 01/31/19 RX: Mineral Oil/Petrolatum,White [Eucerin] 1 applic TOPICAL QHS jar 01/31/19 RX: Ondansetron HCl [Zofran] 4 mg PO Q8H PRN PRN #90 tab 01/31/19 RX: Pantoprazole Sodium [Protonix] 40 mg PO BID #60 tab 01/31/19 RX: Topiramate [Topamax] 25 mg PO BID #60 tab 01/31/19 Following Prescrptions Were Given to Patient: RX: Dexamethasone [Decadron] 2 mg PO BID #60 tab Prescription Printed RX: Atorvastatin Calcium [Lipitor] 20 mg PO QHS #30 tab Prescription Printed RX: Metformin HCl [Metformin HCl ER] 500 mg PO DAILY #30 tab.er.24h Prescription Printed RX: Pantoprazole Sodium [Protonix] 40 mg PO BID #60 tab Prescription Printed RX: Topiramate [Topamax] 25 mg PO BID #60 tab Prescription Printed RX: Ondansetron HCl [Zofran] 4 mg PO Q8H PRN PRN #90 tab PRN Reason: Nausea Prescription Printed Primary Care Physician: Babatunde Barron [Primary Care Provider] - Please follow up with your Primary Care Physician in: 1 week. Please Follow Up With: Megan Delaney MD When: 2 weeks. Disposition: Home with Home Health Minutes spent on discharge:: 35 Patient Condition:: Stable Medical Necessity - Tobacco Use Smoking Status: Former smoker Tobacco Use: Non-smoker Meaningful Use Info Meaningful Use Diagnoses (Choose all that apply): None applicable
--- NOTE | 2019-01-31 16:51 | PCM.PN.HH ---
Home Health Note - Plan Overview of reason of hospitalization: The patient is a 73 year old Female with below past medical history status post cerebellar meningioma resection, complicated by NPH requiring METAL PATTERNMAKER shunt placement, admitted to Inpatient Rehabilitation Unit, transferred to TCU with debility, here for rehabilitation, strengthening, prior to discharge home alone. Discharge home alone, [facility] PT/OT/SN. Problems: Patient was seen for (Last Updated 01/15/19 @ 20:19 by Librado De Santiago DO) Cerebellar meningioma (Chronic) Normal pressure hydrocephalus (Chronic) GERD (gastroesophageal reflux disease) (Chronic) Nausea (Chronic) Seizure disorder (Chronic) Complete List of Medical Problems (Last Updated 01/15/19 @ 20:19 by Librado De Santiago DO) Debility (Acute) HTN (hypertension) (Chronic) HLD (hyperlipidemia) (Chronic) Diabetes (Chronic) Hydrocephalus (Acute) Cerebellar mass (Chronic) S/P METAL PATTERNMAKER shunt (Acute) Cerebellar meningioma (Chronic) Normal pressure hydrocephalus (Chronic) GERD (gastroesophageal reflux disease) (Chronic) Nausea (Chronic) Seizure disorder (Chronic) - Requirements and Reasons Disciplines Needed/Ordered: Usp, Physical Therapy Reason for Disciplines: Disease Specific Monitoring/education, Medication Management/Knowledge Deficit, Gait Training, Stair Training, Fall Prevention, Home Safety/Equipment Instruction, Balance and/or Posture Training, Transfer Training Related To: Change in Medical Treatment Plan, Limited/Poor Endurance, Shortness of Breath with Activity, Physical Impairments, Unsteady Gait/Balance, Fall Risk Patient is unable to leave the home: Without Aid of Supportive Devices (crutches, cane, wheelchair, walker), Without the assistance of another person - Additional Disciplines Additional Disciplines Needed/Ordered: Occupational Therapy
--- NOTE | 2019-01-31 18:41 | NURSING ---
This nurse in twice to give Soap Suds Enema. First time, Male and Female Visitor in room. 2nd time, Female Visitor still present. Pt walking out of bathroom states to this nurse that It's starting. When this nurse questioned what that meant, pt stated Bowel movements. Pt had flushed before this nurse could see but pt states it was small. This nurse said it was time for her Soap Suds while holding it in my hands and showing pt that I had it. Let's just wait and see what happens. This nurse repeated what patient had said and patient agreed. This nurse told Jimena LOPEZ. Pt also wanting to wait to take her scheduled 1800 meds, my stomach just started feeling better.
[2019-01-31] MEDS: Atorvastatin Calcium 20 MG Tablet PO (20:22)
--- NOTE | 2019-01-31 21:53 | NURSING ---
Mentioned to pt regarding soap suds enema per 's order, pt states she already had a BM earlier. educated pt why she needed it. pt still refused.
[2019-02-01] MEDS: Enoxaparin 40 MG/0.4 ML Syringe SC (05:00)
--- NOTE | 2019-02-01 05:08 | NURSING ---
pt states she had soft medium bm this am.
[2019-02-01 06:21] LABS: Bedside Glucose 156 mg/dL (70-110)
[2019-02-01] MEDS: Pantoprazole Sodium 40 MG Tablet PO ×2 (08:27→17:22)
[2019-02-01] MEDS: Senna/Docusate Sodium 1 Tablet PO ×2 (08:27→17:23)
[2019-02-01] MEDS: dexAMETHasone 4 MG Tablet 2 MG PO ×2 (08:27→17:22)
[2019-02-01] MEDS: metFORMIN (XR) 500 MG Tablet PO (08:27)
[2019-02-01] MEDS: Topiramate 25 MG Tablet PO ×2 (08:27→20:52)
[2019-02-01 15:34] VITALS: BP 111/62; PULSE 65; RESP 16; TEMP 36.3; O2SAT 94
[2019-02-01] MEDS: Atorvastatin Calcium 20 MG Tablet PO (20:51)
[2019-02-02] MEDS: Enoxaparin 40 MG/0.4 ML Syringe SC (05:30)
[2019-02-02 05:43] LABS: Absolute Lymphocyte Count 1.45 X10^3/uL (0.83-4.51); Absolute Neutrophil Count 5.5 X10^3/uL (2.0-7.7); Basophil# 0.01 X10^3/uL; Basophil% 0.1 % (0-1); Eosinophils% 1.3 % (0-5); Hematocrit 34.1 % (37-47); Hemoglobin 11.4 g/dL (12.0-15.0); Lymphocyte # 1.45 X10^3/ul (4.0); Lymphocyte % 18.9 % (19-41); Mean Corp Hgb Conc 33.4 g/dL (32-36); Mean Corpuscular Hgb 28.9 pg (27.0-32.0); Mean Corpuscular Volume 86.3 fL (81-99); Mean Platelet Vol. 8.4 fl (6.2-12.0); Monocyte# 0.58 X10^3/uL; Monocyte% 7.5 % (0-10); NRBC Flagged by Analyzer 0 % (0-5); Neutrophil # 5.47 X10^3/uL (2.7-7.7); Neutrophil % 71.2 % (47-70); Platelet Count 172 K/mm3 (150-450); RBC Distribution Width CV 14.5 % (11.6-14.6); Red Blood Count 3.95 M/mm3 (4.2-5.4); White Blood Count 7.7 K/mm3 (4.4-11.0)
[2019-02-02 06:23] LABS: Anion Gap 7 (5-15); BUN 17 mg/dL (7-18); Calcium,Total 9.1 mg/dL (8.5-10.1); Chloride 105 mmol/L (98-107); Creatinine, Serum 0.55 mg/dL (0.55-1.02); EST Glomerular Filtration Rate 116 mL/min (>60); Est Glom Filt Rate - Afr Amer 140 mL/min (>60); Estimated Creatinine Clearance 45.09 ml/min; Glucose 101 mg/dL (74-106); Potassium 3.3 mmol/L (3.5-5.1); Sodium Level 138 mmol/L (136-145)
[2019-02-02 06:45] LABS: Bedside Glucose 129 mg/dL (70-110)
[2019-02-02] MEDS: dexAMETHasone 4 MG Tablet 2 MG PO ×2 (09:02→16:36)
[2019-02-02] MEDS: Pantoprazole Sodium 40 MG Tablet PO ×2 (09:03→16:36)
[2019-02-02] MEDS: metFORMIN (XR) 500 MG Tablet PO (09:03)
[2019-02-02] MEDS: Topiramate 25 MG Tablet PO ×2 (09:06→20:23)
[2019-02-02] MEDS: Senna/Docusate Sodium 1 Tablet PO ×2 (09:06→16:36)
[2019-02-02] MEDS: Tuberculin,Purif.prot.deriv. 50 TU/ML Vial 5 ML ID (10:46)
--- NOTE | 2019-02-02 14:28 | NURSING ---
Addendum entered by Yoon Patel 02/02/19 14:41: Pt refusing K-dur, states she would like labs rechecked in 3 days but doesn't want to start a new med at this time. Jimy Zazueta NP updated. Original Note: Morning labs reviewed by Jimy Zazueta NP. N.O. for K-dur 10meq x3 days then recheck BMP. Pt updated.
[2019-02-02 15:36] VITALS: BP 141/68; PULSE 73; RESP 19; TEMP 36.9; O2SAT 95
[2019-02-02] MEDS: Atorvastatin Calcium 20 MG Tablet PO (20:23)
[2019-02-02 20:31] VITALS: PULSE 73; RESP 19; O2SAT 95
[2019-02-03] MEDS: Enoxaparin 40 MG/0.4 ML Syringe SC (05:59)
[2019-02-03] MEDS: metFORMIN (XR) 500 MG Tablet PO (08:02)
[2019-02-03] MEDS: Pantoprazole Sodium 40 MG Tablet PO ×2 (08:02→17:25)
[2019-02-03] MEDS: dexAMETHasone 4 MG Tablet 2 MG PO ×2 (08:02→17:26)
[2019-02-03] MEDS: Topiramate 25 MG Tablet PO ×2 (08:03→20:22)
[2019-02-03 15:57] VITALS: BP 111/64; PULSE 77; RESP 18; TEMP 37; O2SAT 95
[2019-02-03] MEDS: Atorvastatin Calcium 20 MG Tablet PO (20:22)
[2019-02-04] MEDS: Enoxaparin 40 MG/0.4 ML Syringe SC (06:17)
[2019-02-04 06:31] LABS: Bedside Glucose 130 mg/dL (70-110)
[2019-02-04] MEDS: Pantoprazole Sodium 40 MG Tablet PO ×2 (08:10→17:48)
[2019-02-04] MEDS: metFORMIN (XR) 500 MG Tablet PO (08:10)
[2019-02-04] MEDS: Topiramate 25 MG Tablet PO ×2 (08:27→19:32)
[2019-02-04 15:29] VITALS: BP 110/65; PULSE 65; RESP 19; TEMP 37.5; O2SAT 97
[2019-02-04] MEDS: Atorvastatin Calcium 20 MG Tablet PO (19:32)
[2019-02-04 19:35] VITALS: O2SAT 98
[2019-02-05] MEDS: Acetaminophen 500 MG Tablet 1000 MG PO ×2 (00:36→06:37)
--- NOTE | 2019-02-05 05:34 | NURSING ---
Lab notified this nurse pt was refusing blood draw this AM. This nurse in to asses why pt was refusing. Pt stating I am going home tomorrow and I do not want to be taking any more medications This nurse educated pt on why blood work was ordered to recheck K d/t labs being low. Pt still refusing. Will update Dr. Hernandez.
[2019-02-05] MEDS: Enoxaparin 40 MG/0.4 ML Syringe SC (05:59)
--- NOTE | 2019-02-05 06:07 | NURSING ---
This nurse into give AM meds. Pt stating I have been awake all night because someone keeps yelling and I am about to go tell them to be quiet. This nurse explained to pt that when doing rounds she was asleep. Pt stating I did not sleep at all Verified with overnight cashier [employer], pt had been sleeping on her rounds. This nurse apologized and asked what staffing could help her with at this time. Pt requesting some hot tea and her door to be closed. Hot tea provided and pt resting in bed with call light in reach denying further needs at this time. Door closed per pt request.
[2019-02-05 06:46] LABS: Bedside Glucose 91 mg/dL (70-110)
[2019-02-05] MEDS: Pantoprazole Sodium 40 MG Tablet PO ×2 (08:27→17:53)
[2019-02-05] MEDS: metFORMIN (XR) 500 MG Tablet PO (08:28)
[2019-02-05] MEDS: Topiramate 25 MG Tablet PO ×2 (08:29→20:24)
[2019-02-05 16:00] VITALS: BP 130/77; PULSE 90; RESP 17; TEMP 37.1; O2SAT 97
[2019-02-05] MEDS: Atorvastatin Calcium 20 MG Tablet PO (20:24)
[2019-02-06] MEDS: Acetaminophen 500 MG Tablet 1000 MG PO (01:40)
[2019-02-06] MEDS: Enoxaparin 40 MG/0.4 ML Syringe SC (05:28)
[2019-02-06 06:31] LABS: Bedside Glucose 102 mg/dL (70-110)
[2019-02-06] MEDS: Pantoprazole Sodium 40 MG Tablet PO (08:31)
[2019-02-06] MEDS: metFORMIN (XR) 500 MG Tablet PO (08:31)
[2019-02-06] MEDS: Topiramate 25 MG Tablet PO (08:32)
--- NOTE | 2019-02-06 10:21 | PCA ---
Discharged patient at 10:05am after discharge came up to strip the room and noticed pt's cell phone burglar alarm operator was left called and spoke with daughter josafat who will be coming to pickup
[2019-02-06 10:27] VITALS: PULSE 80; RESP 16
--- NOTE | 2019-02-06 11:59 | MDS.RN ---
Information for the mds was obtained from review of the clinical record, interview of resident, staff, and direct observation of resident's care.
== END 2019-02-06 10:10 | disposition home health service (06) | DRG 949 ==
PROVIDERS: Admitting Provider Family Medicine Geriatric Medicine; Family Provider Internal Medicine; PCP Internal Medicine; Referring Provider Family Medicine Geriatric Medicine; Visit Provider Family Medicine Geriatric Medicine
DX: Z48.811 Encounter for surgical aftercare following surgery on the nervous system (principal); G91.2 (Idiopathic) normal pressure hydrocephalus; E78.5 Hyperlipidemia, unspecified; E11.9 Type 2 diabetes mellitus without complications; I10 Essential (primary) hypertension; K21.9 Gastro-esophageal reflux disease without esophagitis; G40.909 Epilepsy, unspecified, not intractable, without status epilepticus; Z86.011 Personal history of benign neoplasm of the brain; Z98.2 Presence of cerebrospinal fluid drainage device; Z87.891 Personal history of nicotine dependence
CPT/HCPCS: 36415; 80048; 82962; 85025; 92507; 92523; 97110; 97116; 97162; 97166; 97530; 97535; 97802

== ENCOUNTER 2020-08-26 12:44 | Emergency (ER) | payer MEDICARE, OTHER, SELFPAY ==
[2019-01-25 14:42] VITALS: BMI 21.2
[2020-08-26 12:45] VITALS: BP 192/83; PULSE 73; RESP 18; TEMP 36.6; O2SAT 96; BMI 27.9
--- NOTE | 2020-08-26 12:49 | CT_ITS ---
: CT CERVICAL SPINE WITHOUT CONTRAST REASON FOR EXAM: Female, 75 years old. trauma RADIATION DOSAGE (If Supplied By Facility): CTDIvol = ( 20.09 ) mGy, DLP = ( 380.03 ) mGycm TECHNIQUE: High resolution transaxial imaging was performed without contrast material. Sagittal and coronal images were reconstructed. Individualized dose optimization techniques were used for this CT. COMPARISON: None FINDINGS: Suboccipital craniotomy seen. The vertebral bodies are of normal height and alignment. Intervertebral discs are maintained throughout the cervical spine. The spinous processes are intact. There are degenerative changes involving the facet joints particularly at the level of C4-C5, C5-C6 and C6-C7. The neural foramina are patent. The prevertebral space and air column are unremarkable. CT/Spine Cervical without Contras IMPRESSION: Osteoarthritis changes of the facet joints at the levels described above. Electronically Signed: Migue Sampson, at 14:43 EDT Tel , Service support ,
--- NOTE | 2020-08-26 12:49 | CT_ITS ---
STUDY: CT FACIAL BONES WITHOUT CONTRAST REASON FOR EXAM: Female, 75 years old. trauma RADIATION DOSAGE (If Supplied By Facility): CTDIvol = ( 29.38 ) mGy, DLP = ( 547.46 ) mGycm TECHNIQUE: The patient was scanned in a multi detector CT scanner. Sagittal and coronal images were reconstructed. Individualized dose optimization techniques were used for this CT. COMPARISON: None. FINDINGS: There is a blowout fracture involving the posterior aspect of the floor of the right orbit with inferior displacement of the bony fragment into the right maxillary sinus with minimal soft tissue within the superior aspect of the right maxillary antrum. Normal nasal bones and anterior nasal spine. There is opacification of some of the ethmoidal air cells on the right side... CT/Sinus/Facial Bone IMPRESSION: Evidence of blowout fracture involving the posterior aspect of the floor of the right orbit with inferior displacement of fracture fragment into the right maxillary sinus where there is minimal soft tissue in the roof of the antrum. Opacification of some ethmoidal air cells on the right side. Electronically Signed: Migue Sampson, at 14:11 EDT Tel , Service support ,
[2020-08-26 12:54] VITALS: O2SAT 98
--- NOTE | 2020-08-26 12:56 | EDS_ITS ---
HPI HPI - Fall History of Present Illness Chief Complaint: Fall Informant: patient Occured/Mechanism Occurred: Today Mechanism/Context: Yes same level fall and Yes trip Pain/Injury Pain Location: head, face and upper extremity Quality of Pain: Dull and Aching Current Severity: Moderate Maximum Severity: Moderate Associated Symptoms Associated Symptoms: Negative for Parasthesias, Weakness, Inability to ambulate and Loss of consciousness Narrative Narrative: The patient is a 75-year-old female with medical history significant for cerebellar mass status post STRUCTURAL ENGINEERING TECHNICIAN shunt, seizure disorder, who presents to the emergency department after mechanical fall. Patient states she was outdoors gardening. She states she tripped and fell. She landed on her right side. She struck her face and right shoulder. She does not think she lost consciousness. She states that she was having a lot of pain in the right shoulder. When she stood, she felt something pop and the pain did seem to be better. She is concerned because she does have a STRUCTURAL ENGINEERING TECHNICIAN shunt. She denies visual change. She does describe some pain in her teeth, but no malocclusion. She denies any neck pain. [facility] Medical History HTN (hypertension) Hyperlipidemia Normal pressure hydrocephalus Home Medications acetaminophen 1,000 mg PO Q6H PRN PRN tab 01/31/19 [Rx Last Taken Unknown] ascorbic acid (vitamin C) [Vitamin C] 500 mg PO DAILY 08/26/20 [History Last Taken Unknown] cholecalciferol (vitamin D3) [Vitamin D3] 50 mcg PO DAILY 08/26/20 [History Last Taken Unknown] cranberry 2 tab DAILY 08/26/20 [History Last Taken Unknown] docusate sodium [Stool Softener] 100 mg PO DAILY 08/26/20 [History Last Taken Unknown] escitalopram oxalate [Lexapro] 10 mg PO DAILY 08/26/20 [History Last Taken Unknown] gabapentin 600 mg PO DAILY 08/26/20 [History Last Taken Unknown] hydrochlorothiazide 25 mg PO DAILY 08/26/20 [History Last Taken Unknown] hydrocodone-acetaminophen 1 tab PO Q6H PRN PRN 3 Days #10 tablet 08/26/20 [Rx Last Taken Unknown] losartan 100 mg PO DAILY 08/26/20 [History Last Taken Unknown] multivitamin 1 tab PO DAILY 08/26/20 [History Last Taken Unknown] ondansetron 4 mg PO Q8H PRN PRN #10 tab 08/26/20 [Rx Last Taken Unknown] rosuvastatin [Crestor] 20 mg PO DAILY 08/26/20 [History Last Taken Unknown] timolol maleate 1 drp EACH EYE BID 08/26/20 [History Last Taken Unknown] vit C-vit P5-P-slzw-elderberry [Airborne Vits Zinc Elderberry] 1 tab PO DAILY 08/26/20 [History Last Taken Unknown] vitamin U21-wuoye acid 1,000 tab DAILY 08/26/20 [History Last Taken Unknown] Allergy/AdvReac Type Severity Reaction Status Date / Time cefepime Allergy Anaphylaxis Verified 01/26/19 13:25 Surgical History S/P hip replacement S/P resection of meningioma S/P STRUCTURAL ENGINEERING TECHNICIAN shunt Social History Smoking Status: Former smoker ROS ROS ED Constitutional Constitutional ED: Denies chills or fever(s) Eyes Eyes: Denies blurry vision or change in vision ENT ENT ED: Denies ear pain or sore throat Cardiovascular Cardiovascular: Denies chest pain or palpitations Respiratory/Chest Respiratory/Chest: Denies cough, dyspnea or dyspnea on exertion Gastrointestinal Gastrointestinal: Denies abdominal pain, nausea or vomiting Genitourinary Genitourinary ED: Denies dysuria or urinary frequency Musculoskeletal Musculoskeletal: Denies arthralgias or myalgias Integumentary Denies rash Neurologic Neurologic: Denies headache(s) or paresthesias Psychiatric Psychiatric: Denies anxiety or depression Endocrine Endocrinology: Denies polydipsia or polyuria Allergic/Immunologic Allergic/Immunologic ED: Denies urticaria EXAM Physical Exam Const Vital Signs: 08/26/20 12:45 08/26/20 12:54 08/26/20 14:16 Temperature 97.8 F Temperature Source Temporal Pulse Rate 73 65 Respiratory Rate 18 12 Respiratory Effort Normal Non-Labored Respiratory Depth Normal Respiratory Pattern Normal Blood Pressure 192/83 H 164/79 H Blood Pressure Mean 119 107 Pulse Ox 96 98 95 Oxygen Delivery Method Room Air Room Air Room Air Positive well nourished and well developed General Appearance ED: well developed HEENT Reports normocephalic, head/scalp atraumatic and moist mucous membranes HEENT Narrative: Periorbital ecchymosis around the right eye. No hyphema. No evidence of entrapment. trauma Eyes PERRL and EOMs intact bilaterally Neck no lymphadenopathy and supple General: Negative for tenderness Chest Wall inspection of chest normal Resp normal respiratory effort and clear to auscultation bilaterally Cardio regular rate, regular rhythm and no murmurs GI normal to inspection, nondistended, normoactive bowel sounds Palpation: Negative for tender, guarding or rebound tenderness present Back/Spine no CVA tenderness Cervical Spine: Negative for cervical spine tenderness Thoracic Spine / Upper Back: Negative for thoracic spinal tenderness Extremity normal to inspection Extremity Narrative: Mild mild tenderness palpation over the right shoulder. Normal pulses. No obvious deformity. No gross laxity. General Extremety ED: Negative for tenderness Neuro oriented x3 and CN's II-XII intact bilaterally Neuro Narrative: No focal deficits appreciated. Sensorium / Orientation: alert Psych mental status grossly normal Skin no rashes or lesions noted, no wounds and skin turgor normal MDM MDM MDM Narrative Medical decision making narrative: Patient presents with mechanical fall. She did strike her face. She denies loss of consciousness. Her major complaint is of some pain around the eye and pain in the right shoulder. The patient was examined multiple times. She has no proptosis. She has no evidence of entrapment. She does not complain of diplopia. Patient was given analgesics and is resting comfortably. CT of the brain was obtained. Shunt is intact. There is no intracranial abnormalities. CT of the max face does demonstrate a blowout fracture of the posterior aspect of the right orbit with some mild displacement. I did discuss this with ophthalmology, Dr. Mathew. He states that he was comfortable seeing the patient as an outpatient as she is having no symptoms of entrapment or other dangerous process. X-rays of the shoulder show no fracture. There is some mild subluxation, but no dislocation. Labs are unremarkable. CT of the C-spine was also obtained which was negative. At this point, the patient be discharged with analgesics for acute pain control. She will be given outpatient ophthalmology follow-up. I did relationship counselor her that if she starts to have double vision, change in vision, or any other symptoms that she should be reevaluated. She is comfortable with this plan of care. Impression 1. Mechanical fall 2. Right orbital blowout fracture without entrapment 3. Right shoulder contusion Lab Data Labs: Laboratory Results - last 24 hr 08/26/20 08/26/20 13:05 13:05 WBC 6.6 RBC 4.61 Hgb 13.4 Hct 40.2 MCV 87.2 MCH 29.1 MCHC 33.3 RDW Std Deviation 41.3 RDW Coeff of Amira 13.0 Plt Count 228 MPV 8.6 Immature Gran % (Auto) 0.600 Neut % (Auto) 66.5 Lymph % (Auto) 21.6 Carroll % (Auto) 8.8 Eos % (Auto) 1.7 Baso % (Auto) 0.8 Absolute Neuts (auto) 4.4 Absolute Lymphs (auto) 1.42 Nucleated RBC % 0 Sodium 137 Potassium 3.7 Chloride 102 Carbon Dioxide 31.0 Anion Gap 4 L BUN 14 Creatinine 0.63 Estim Creat Clear Calc 43.74 Est GFR (MDRD) Af Amer 118 Est GFR (MDRD) Non-Af 98 BUN/Creatinine Ratio 22.2 H Glucose 136 H Calcium 9.6 Radiography Diagnostic Testing: Radiology Impression Cervical Spine CT 08/26/20 12:49 IMPRESSION: Osteoarthritis changes of the facet joints at the levels described above. Electronically Signed: Zeusamelia Camilla, at 14:43 EDT Tel , Service support , Facial/Sinus 08/26/20 12:49 IMPRESSION: Evidence of blowout fracture involving the posterior aspect of the floor of the right orbit with inferior displacement of fracture fragment into the right maxillary sinus where there is minimal soft tissue in the roof of the antrum. Opacification of some ethmoidal air cells on the right side. Electronically Signed: Migue Sampson, at 14:11 EDT Tel , Service support , Brain CT 08/26/20 13:38 IMPRESSION: Normal unenhanced CT scan of the brain. Electronically Signed: Migue Sampson, at 14:01 EDT Tel , Service support , Shoulder X-Ray 08/26/20 13:45 IMPRESSION: Normal x-ray examination of the shoulder. Electronically Signed: Migue Sampson, at 14:43 EDT Tel , Service support , Discharge Plan Triage Chief Complaint: Fall ED Provider: Jj Araiza Dx/Rx/DC Orders Instructions: ED Facial Fracture, ED Shoulder Contusion Prescriptions: New hydrocodone-acetaminophen [hydrocodone-acetaminophen] 1 TABLET tablet 1 tab PO Q6H PRN PRN (Reason: Pain) 3 Days Qty: 10 RF: 0 ondansetron [ondansetron] 4 MG tablet 4 mg PO Q8H PRN PRN (Reason: Nausea) Qty: 10 RF: 0 No Action acetaminophen 500 MG tablet 1,000 mg PO Q6H PRN PRN (Reason: Pain Score 1-10/10) RF: 0 multivitamin Tablet 1 tab PO DAILY RF: 0 gabapentin 600 mg Tablet 600 mg PO DAILY RF: 0 ascorbic acid (vitamin C) [Vitamin C] 500 mg Tablet 500 mg PO DAILY RF: 0 hydrochlorothiazide 25 mg Tablet 25 mg PO DAILY RF: 0 timolol maleate 0.5 % Drops 1 drp EACH EYE BID RF: 0 losartan 100 mg Tablet 100 mg PO DAILY RF: 0 docusate sodium [Stool Softener] 100 mg Tablet 100 mg PO DAILY RF: 0 escitalopram oxalate [Lexapro] 10 mg Tablet 10 mg PO DAILY RF: 0 rosuvastatin [Crestor] 20 mg Tablet 20 mg PO DAILY RF: 0 cholecalciferol (vitamin D3) [Vitamin D3] 50 mcg (2,000 unit) Capsule 50 mcg PO DAILY RF: 0 vitamin V90-yeyyu acid 1,000-400 mcg Tablet, Sublingual 1,000 tab DAILY RF: 0 Airborne Vits Zinc Elderberry 65 mg-3.15 mcg- 3.35 mg-1 mg Tablet,Chewable 1 tab PO DAILY RF: 0 cranberry 2 tab DAILY RF: 0 Primary Care Provider: Babatunde Barron Referrals: Babatunde Barron MD [Primary Care Provider] - Eleazar Mathew MD [STAFF PHYSICIAN] - 1 Day for another exam
[2020-08-26] MEDS: Ondansetron 4 MG/2 ML Vial IV (13:10)
[2020-08-26] MEDS: Morphine 4 MG/ML Syringe IV (13:10)
[2020-08-26] MEDS: 0.9% Normal Saline 1,000 ML 150 ML IV (13:13)
[2020-08-26 13:28] LABS: Absolute Lymphocyte Count 1.42 X10^3/uL (0.83-4.51); Absolute Neutrophil Count 4.4 X10^3/uL (2.0-7.7); Basophil# 0.05 X10^3/uL; Basophil% 0.8 % (0-1); Eosinophil# 0.11 X10^3/uL; Eosinophils% 1.7 % (0-5); Hematocrit 40.2 % (37-47); Hemoglobin 13.4 g/dL (12.0-15.0); Lymphocyte # 1.42 X10^3/ul (0.83-4.51); Lymphocyte % 21.6 % (19-41); Mean Corp Hgb Conc 33.3 g/dL (32-36); Mean Corpuscular Hgb 29.1 pg (27.0-32.0); Mean Corpuscular Volume 87.2 fL (81-99); Mean Platelet Vol. 8.6 fl (6.2-12.0); Monocyte# 0.58 X10^3/uL; Monocyte% 8.8 % (0-10); NRBC Flagged by Analyzer 0 % (0-5); Neutrophil # 4.36 X10^3/uL (2.7-7.7); Neutrophil % 66.5 % (47-70); Platelet Count 228 K/mm3 (150-450); RBC Distribution Width SD 41.3 fl (35.1-43.9); Red Blood Count 4.61 M/mm3 (4.2-5.4); White Blood Count 6.6 K/mm3 (4.4-11.0)
[2020-08-26 13:33] LABS: Anion Gap 4 (5-15); BUN 14 mg/dL (7-18); BUN/Creat Ratio 22.2 RATIO (10-20); Calcium,Total 9.6 mg/dL (8.5-10.1); Chloride 102 mmol/L (98-107); Creatinine, Serum 0.63 mg/dL (0.55-1.02); EST Glomerular Filtration Rate 98 mL/min (>60); Est Glom Filt Rate - Afr Amer 118 mL/min (>60); Estimated Creatinine Clearance 43.74 ml/min; Glucose 136 mg/dL (74-106); Potassium 3.7 mmol/L (3.5-5.1); Sodium Level 137 mmol/L (136-145)
--- NOTE | 2020-08-26 13:38 | CT_ITS ---
STUDY: CT BRAIN WITHOUT CONTRAST REASON FOR EXAM: Female, 75 years old. trauma RADIATION DOSAGE (If Supplied By Facility): CTDIvol = ( 44.99 ) mGy, DLP = ( 779.24 ) mGycm TECHNIQUE: Transaxial CT imaging of the brain was performed without administration of intravenous contrast material. Individualized dose optimization techniques were used for this CT. COMPARISON: No relevant priors. FINDINGS: There is a ELECTRIC MOTOR REPAIRER shunt within the right lateral ventricle , the rest of the ventricular system is unremarkable. No increased or decreased brain density. No epidural, subdural or intraparenchymal hemorrhage. The skull base and cranial vault are intact. The orbits and sinuses are unremarkable. Mastoid air cells are well aerated. CT/Brain/Head without Contrast IMPRESSION: Normal unenhanced CT scan of the brain. Electronically Signed: Migue Sampson, at 14:01 EDT Tel , Service support ,
--- NOTE | 2020-08-26 13:45 | RAD_ITS ---
STUDY: X-RAY - RIGHT SHOULDER REASON FOR EXAM: Female, 75 years old. trauma TECHNIQUE: view(s) of the shoulder. COMPARISON: None. FINDINGS: Normal glenohumeral articulation. Normal acromioclavicular joint. Normal acromion. Normal humeral head and visualized proximal humerus. The soft tissue structures are unremarkable. Normal visualized pulmonary apex. RAD/Shoulder min 2 Views IMPRESSION: Normal x-ray examination of the shoulder. Electronically Signed: Migue Sampson, at 14:43 EDT Tel , Service support ,
[2020-08-26 14:16] VITALS: BP 164/79; PULSE 65; RESP 12; O2SAT 95
[2020-08-26 15:00] VITALS: PULSE 61; RESP 14; O2SAT 95
== END 2020-08-26 15:02 | disposition home or self-care (01) ==
LOC: ED 14:01
PROVIDERS: Emergency Provider Emergency Medicine; PCP Internal Medicine
DX: S02.31XA Fracture of orbital floor, right side, initial encounter for closed fracture (principal); S40.011A Contusion of right shoulder, initial encounter; W01.0XXA Fall on same level from slipping, tripping and stumbling without subsequent striking against object, initial encounter; I10 Essential (primary) hypertension; E78.5 Hyperlipidemia, unspecified; Z98.2 Presence of cerebrospinal fluid drainage device; Z87.891 Personal history of nicotine dependence; Z79.899 Other long term (current) drug therapy
CPT/HCPCS: 70450; 70486; 72125; 73030; 80048; 85025; 96361; 96374; 96375; 99285; J7030; J2405